=== PATIENT | male | born 1955 | race Caucasian/White ===

== ENCOUNTER 2019-12-18 06:08 | Outpatient (CLI) | payer MEDICARE ==
[2019-12-18 13:05] LABS: Hemoglobin 13.7 g/dL (14.0-18.0); Mean Corpuscular HGB CONC 34.2 g/dL (32.0-36.0); Mean Corpuscular Hemoglobin 36.5 pg (27.0-31.0); Mean Platelet Volume 7.1 fL (7.4-10.4); Platelet Count 216 thou/uL (130-400); Red Blood Cell (RBC) Count 3.75 mill/uL (4.70-6.10); White Blood Cell (WBC) Count 7.7 thou/uL (4.8-10.8)
[2019-12-18 13:36] LABS: Anion Gap 15 mmol/L (10-20); BUN (Urea Nitrogen) 16 mg/dL (8.4-25.7); Calc. Creatinine Clearance 0 mL/min (70-130); Calcium 9.8 mg/dL (7.8-10.44); Carbon Dioxide 25 mmol/L (23-31); Chloride 101 mmol/L (98-107); Estimated GFR-MDRD 77; Glucose 95 mg/dL (80-115); Potassium 4.6 mmol/L (3.5-5.1); Sodium 136 mmol/L (136-145)
--- NOTE | 2019-12-18 17:06 | EKG ---
Test Reason : Blood Pressure : / mmHG Vent. Rate : 064 BPM Atrial Rate : 064 BPM P-R Int : 220 ms QRS Dur : 092 ms QT Int : 420 ms P-R-T Axes : 059 000 106 degrees QTc Int : 433 ms Sinus rhythm with 1st degree A-V block Minimal voltage criteria for LVH, may be normal variant Septal infarct , age undetermined T wave abnormality, consider lateral ischemia Abnormal ECG No previous ECGs available Confirmed by DR. Augustus BAIG ([id number]) on 12/18/2019 5:05:58 PM Referred By: DENIS Confirmed By:DR. Augustus BAIG
== END 2019-12-18 06:09 | disposition home or self-care (01) ==
LOC: LABBT 06:08
PROVIDERS: ATTEND Urology
DX: Z01.818 Encounter for other preprocedural examination (principal); N31.9 Neuromuscular dysfunction of bladder, unspecified
CPT/HCPCS: 80048; 85027; 87086; 93005; 93010

== ENCOUNTER 2019-12-25 08:33 | Day surgery (SDC) | payer MEDICARE ==
[2019-12-18 11:52] VITALS: BMI 35.7
[2019-12-25] MEDS ORDERED: Levofloxacin 500 mg/D5W 100 ml Premix Bag ONE (09:17)
[2019-12-25] MEDS ORDERED: Fentanyl 100 MCG/2 ML VIAL ONE ×2 (10:12→11:25)
[2019-12-25] MEDS ORDERED: Bupivacaine PF 0.5% 30 ML VIAL ONE (10:23)
[2019-12-25] MEDS ORDERED: EPHEDRINE 25 MG/5 ML SYRINGE ONE (11:13)
[2019-12-25] MEDS ORDERED: Ondansetron PF 4 MG/2 ML Vial ONE (11:13)
[2019-12-25] MEDS ORDERED: PROPOFOL 200 MG/20 ML VIAL ONE (11:13)
[2019-12-25] MEDS ORDERED: PHENYLEPHRINE-NS 100 MCG/ML 10 ML SYRINGE ONE (11:13)
[2019-12-25] MEDS ORDERED: Succinylcholine Chloride 20 MG/ML 10 ml SYRINGE FS ONE (11:13)
[2019-12-25] MEDS ORDERED: Esmolol 100 MG/10 ML VIAL ONE (11:13)
--- NOTE | 2019-12-25 12:02 | OP ---
DATE OF PROCEDURE: 12/25/2019 PREOPERATIVE DIAGNOSIS: Urinary retention. POSTOPERATIVE DIAGNOSES: Urinary retention, wound on right base of penis, scrotal abscess. PROCEDURES PERFORMED: Placement of suprapubic tube, irrigation and dressing of right base of penis wound, irrigation and probing of right scrotal abscess. ANESTHESIA: General. COMPLICATIONS: None. BLOOD LOSS: Minimal. DESCRIPTION OF PROCEDURE: After informed consent, the patient was taken to the operating room and transferred to the table under his own power. Anesthesia was established. A time-out was performed showing the correct patient, site, and procedure. He was prepped and draped in a lithotomy position after removing his catheter. I began by examining him and noted that he has a wound about 3 cm on the right base of the penis, which appears fresh. No active bleeding. Corpora were not visualized. No signs of infection. This was irrigated, and no purulence noted. He also has a small abscess cavity on the right side of the scrotum, which appears to have already drained. This was irrigated and probed noting no purulence or signs of infection. I then passed the 17-[place] rigid cystoscope through the urethra noting a very high bladder neck. The bladder was then entered and examined noting no mucosal abnormalities with both 30-degree and 70-degree lenses. He does have severe trabeculation with multiple small diverticula. The suprapubic site was then infiltrated with 20 mL of 0.25% Marcaine. Spinal needle was passed through this into the anterior aspect of the bladder under direct visualization. The scope was then withdrawn, and then a Lowsley catheter was passed, and an incision made through the suprapubic area onto the tip of Lowsley retractor, which was then passed into the suprapubic operative field. An 18-[place] catheter was grasped with the Lowsley and brought down into the bladder. 5 mL was instilled in the balloon. The Lowsley was then withdrawn, and the scope was inserted confirming proper placement of the suprapubic tube visually. The suprapubic incision was closed with chromic suture, and then the suprapubic tube was secured in place with silk suture. I then dressed the wound on the right side of the base of the penis with 4x4 and tape. The patient was then awoken from anesthesia, transferred back to his hospital bed, and taken to PACU in stable condition, where he will discharge home upon recovery. Job ID: [id number]
[2019-12-25] MEDS ORDERED: HYDROcodone/Acetaminophen 5/325 mg Tablet ONE (12:14)
== END 2019-12-25 13:20 | disposition home or self-care (01) ==
LOC: SDC 08:33 → EDBD 11:00 → SDC 13:20
PROVIDERS: ATTEND Urology
PROC: 0T9B30Z Drainage of Bladder with Drainage Device, Percutaneous Approach (ICD-10-PCS; principal; 2019-12-25)
DX: N31.9 Neuromuscular dysfunction of bladder, unspecified (principal); R33.9 Retention of urine, unspecified; N49.2 Inflammatory disorders of scrotum; F17.200 Nicotine dependence, unspecified, uncomplicated; Z79.899 Other long term (current) drug therapy; Z88.0 Allergy status to penicillin
CPT/HCPCS: J1956; J2405; J2704; J3010; S0020

== ENCOUNTER 2020-03-09 20:57 | Emergency (ER) | payer MEDICARE ==
[2020-03-09] MEDS ORDERED: Ciprofloxacin 500 MG TAB ONE (22:37)
== END 2020-03-09 23:05 | disposition home or self-care (01) ==
LOC: ERS 20:57
DX: T83.028A Displacement of other urinary catheter, initial encounter (principal); I25.2 Old myocardial infarction; J44.9 Chronic obstructive pulmonary disease, unspecified; I11.0 Hypertensive heart disease with heart failure; I50.9 Heart failure, unspecified; E78.5 Hyperlipidemia, unspecified; F17.210 Nicotine dependence, cigarettes, uncomplicated
CPT/HCPCS: 51702

== ENCOUNTER 2020-05-23 12:58 | Emergency (ER) | payer MEDICARE ==
[~2020-05-23 12:58] MED LIST: Iopamidol-370 76% 500 ML 1 ML ONE
[2020-05-23 15:09] LABS: Bilirubin Negative (Negative); Blood, Urine 3+ (Negative); Clarity Turbid (Clear); Glucose, Urine (Dipstick) Normal (Negative); Ketone, Urine Negative (Negative); Leukocyte 500 Leu/uL (Negative); Nitrite 2+ (Negative); Protein, Urine (Dipstick) 10 mg/dL (Neg-Trace); RBC/HPF 21-50 HPF (0-3); Specific Gravity, Urine 1.014 (1.002-1.036); Urobilinogen Normal mg/dL (Less than 2); WBC/HPF Greater than 50 HPF (0-3)
[2020-05-23 15:10] LABS: Bacteria/HPF 4+ HPF (None Seen)
[2020-05-23 15:13] LABS: Squamous Epithelial 0-3 HPF (0-3); Yeast-Budding None Seen HPF (None Seen)
[2020-05-23 15:17] LABS: #Basophils 0.1 thou/uL (0.0-0.2); #Eosinphils 0.2 thou/uL (0.0-0.7); #Lymphocytes 2.8 thou/uL (1.20-3.40); #Monocytes 0.7 thou/uL (0.11-0.59); #Neutrophils 5.1 thou/uL (1.40-6.50); %Basophils 0.6 % (0.0-1.0); %Lymphocytes 31.9 % (21.0-51.0); %Monocytes 7.6 % (0.0-10.0); %Neutrophils 57.9 % (42.0-75.0); Hemoglobin 13.8 g/dL (14.0-18.0); Mean Corpuscular HGB CONC 34.6 g/dL (32.0-36.0); Mean Corpuscular Hemoglobin 36.9 pg (27.0-31.0); Mean Platelet Volume 7.1 fL (7.4-10.4); Platelet Count 237 thou/uL (130-400); RBC Distribution Width 11.7 % (11.5-14.5); Red Blood Cell (RBC) Count 3.73 mill/uL (4.70-6.10); White Blood Cell (WBC) Count 8.9 thou/uL (4.8-10.8)
[2020-05-23 15:32] LABS: ALT (SGPT) 28 U/L (8-55); AST (SGOT) 26 U/L (5-34); Albumin 4.2 g/dL (3.4-4.8); Alkaline Phosphatase 61 U/L (40-110); Anion Gap 14 mmol/L (10-20); BUN (Urea Nitrogen) 15 mg/dL (8.4-25.7); Bilirubin, Total 0.6 mg/dL (0.2-1.2); Calc. Creatinine Clearance 0 mL/min (70-130); Calcium 9.8 mg/dL (7.8-10.44); Carbon Dioxide 24 mmol/L (23-31); Chloride 101 mmol/L (98-107); Estimated GFR-MDRD 81; Globulin 3.5 g/dL (2.4-3.5); Glucose 100 mg/dL (80-115); Lipase 34 U/L (8-78); Potassium 4.4 mmol/L (3.5-5.1); Protein, Total 7.7 g/dL (5.8-8.1); Sodium 135 mmol/L (136-145)
[2020-05-23 15:45] LABS: MDiff Complete? YES; Macrocytosis SLIGHT = 6-15 cells (100X) (0-5/hpf); Platelet Morphology Comment Appears Adequate; Polychromasia SLIGHT = 2-3 cells (100X) (0-2/hpf)
[2020-05-23] MEDS ORDERED: Sodium Chloride 0.9% 100 ML ONE (16:08)
[2020-05-23] MEDS ORDERED: cefTRIAXone\\ROCEPHIN 2 GM VIAL ONE (16:08)
[2020-05-23] MEDS ORDERED: Morphine 4 MG/ML VIAL ONE (17:16)
--- NOTE | 2020-05-23 19:29 | CT ---
CT Abdomen Pelvis W Con: 05/23/2020 3:52 PM CLINICAL INFORMATION: Fever and lower abdominal pain; cloudiness in urine COMPARISON: None. TECHNIQUE: Multiple contiguous axial images were obtained and a CT of the abdomen and pelvis with IV contrast. C oronal and sagittal reformats were performed. FINDINGS: Lower Chest: within normal limits. Abdomen: Liver: Diffuse fatty infiltration without focal lesions. Bile Ducts: The common bile duct measures 12 mm which is likely a reservoir effect from prior cholecy stectomy. Gallbladder: Removed Pancreas: within normal limits. Spleen: Calcifications from prior granulomatous disease. Adrenals: 1.9 cm left adrenal mass. Kidneys: 3 mm nonobstructing calcification in the lower pole the left kidney. 1.2 cm left renal cyst. Pelvis: Reproductive Organs: No pelvic masses. Ureters: within normal limits. Bladder: Decompressed by a Montes catheter. Apparent thickening of the wall may be secondary to its de compressed state. Peritoneum: No ascites or free air, no fluid collection. Bowel: Normal caliber. There is thickening of the wall of the colon in the rectal region. Mesentery and Retroperitoneum: No enlarged mesenteric or retroperitoneal lymph nodes. Vessels: Atherosclerotic calcifications. Abdominal Wall: within normal limits. Bones: Degenerative and postsurgical changes in the spine. IMPRESSION: 1. No evidence of acute intraabdominal or pelvic abnormality. 2. Left adrenal mass 3. Nonobstructing left renal calcification 4. Left renal cyst 5. Possible thickening of the wall the rectum. A rectal mass must be excluded. Correlate with physica l examination as this is very low in the rectum. 6. Fatty liver
== END 2020-05-23 20:19 | disposition home or self-care (01) ==
LOC: ERS 12:58
DX: N39.0 Urinary tract infection, site not specified (principal); N48.22 Cellulitis of corpus cavernosum and penis; I11.0 Hypertensive heart disease with heart failure; I50.9 Heart failure, unspecified; I25.2 Old myocardial infarction; J44.9 Chronic obstructive pulmonary disease, unspecified; E78.5 Hyperlipidemia, unspecified; F17.210 Nicotine dependence, cigarettes, uncomplicated; Z79.82 Long term (current) use of aspirin; Z79.899 Other long term (current) drug therapy
CPT/HCPCS: 36415; 51702; 74177; 80053; 81003; 81015; 83605; 83690; 85025; 87040; 87077; 87086; 87186; 96361; 96365; 96372; J0696; J2270; J3490; Q9967

== ENCOUNTER 2021-02-09 22:48 | Inpatient (IN) | payer MEDICARE ==
[2021-02-09 23:21] LABS: #Eosinphils 0.5 thou/uL (0.0-0.7); #Lymphocytes 2.3 thou/uL (1.20-3.40); #Monocytes 0.7 thou/uL (0.11-0.59); #Neutrophils 6.5 thou/uL (1.40-6.50); %Basophils 0.2 % (0.0-1.0); %Eosinophils 4.8 % (0.0-10.0); %Lymphocytes 23.1 % (21.0-51.0); %Monocytes 6.8 % (0.0-10.0); %Neutrophils 65.1 % (42.0-75.0); Hemoglobin 13.3 g/dL (14.0-18.0); Mean Corpuscular HGB CONC 33.7 g/dL (32.0-36.0); Mean Corpuscular Hemoglobin 36.4 pg (27.0-31.0); Mean Platelet Volume 6.6 fL (7.4-10.4); Platelet Count 265 thou/uL (130-400); RBC Distribution Width 12.3 % (11.5-14.5); Red Blood Cell (RBC) Count 3.66 mill/uL (4.70-6.10)
[2021-02-09 23:45] LABS: ALT (SGPT) 27 U/L (8-55); AST (SGOT) 36 U/L (5-34); Albumin 3.7 g/dL (3.4-4.8); Alkaline Phosphatase 75 U/L (40-110); Anion Gap 19 mmol/L (10-20); BUN (Urea Nitrogen) 11 mg/dL (8.4-25.7); Bilirubin, Total 0.2 mg/dL (0.2-1.2); Calc. Creatinine Clearance 0 mL/min (70-130); Calcium 9.4 mg/dL (7.8-10.44); Carbon Dioxide 24 mmol/L (23-31); Chloride 97 mmol/L (98-107); Glucose 210 mg/dL (80-115); Lipase 87 U/L (8-78); Protein, Total 7.7 g/dL (5.8-8.1); Sodium 136 mmol/L (136-145)
[2021-02-10 00:17] LABS: CKMB 2.4 ng/mL (0-6.6)
[2021-02-10] MEDS ORDERED: Cefepime 2 GM VIAL ONE (03:27)
[2021-02-10 03:58] LABS: Troponin I 0.898 ng/mL (< 0.028)
[2021-02-10] MEDS ORDERED: Nitroglycerin 0.4 MG TAB (25 Tab Bottle) SL PRN ×2 (04:32→12:45)
[2021-02-10] MEDS ORDERED: Acetaminophen 325 MG TAB PO PRN (04:32)
[2021-02-10] MEDS ORDERED: Dextrose 5% in Water 1,000 ML IV PRN (04:36)
[2021-02-10] MEDS ORDERED: Dextrose 50% Abboject 50 ML SYRINGE SLOW IVP PRN (04:36)
[2021-02-10] MEDS ORDERED: HumaLOG 300 UNITS/3 ML VIAL SC PRN (04:36)
[2021-02-10] MEDS ORDERED: Heparin 25,000 units/D5W 500 ML IVPB SCH (04:45)
[2021-02-10] MEDS ORDERED: Heparin 10,000 UNITS/ 10 ML VIAL SLOW IVP SCH (04:45)
[2021-02-10 05:29] LABS: Hemoglobin 12.3 g/dL (14.0-18.0); Platelet Count 246 thou/uL (130-400)
[2021-02-10 05:48] LABS: Hemoglobin A1c 5.7 % (4.0-6.0)
[2021-02-10 05:50] LABS: Cardiac Risk 3.1 (Less than 4.5)
[2021-02-10] MEDS ORDERED: Heparin 10,000 UNITS/ 10 ML VIAL ONE ×2 (05:57→12:19)
[2021-02-10] MEDS ORDERED: Heparin 25,000 units/D5W 500 ML ONE (05:57)
[2021-02-10 06:59] LABS: Troponin I 2.128 ng/mL (< 0.028)
[2021-02-10] MEDS ORDERED: Iopamidol-370 76% 500 ML 1 ML ONE (09:07)
[2021-02-10] MEDS ORDERED: Thiamine 100 MG TAB ONE (09:17)
[2021-02-10] MEDS ORDERED: Folic Acid 1 MG TAB ONE (09:17)
[2021-02-10] MEDS ORDERED: Aspirin Chewable 81 MG TAB ONE (09:17)
[2021-02-10] MEDS ORDERED: hydrALAZINE 20 MG/ML VIAL ONE ×2 (09:22→10:58)
[2021-02-10] MEDS: Aspirin Chewable 81 MG TAB PO SCH (09:25)
[2021-02-10] MEDS: Folic Acid 1 MG TAB PO SCH (09:25)
[2021-02-10] MEDS: Thiamine 100 MG TAB PO SCH (09:25)
[2021-02-10 09:58] LABS: Troponin I 2.416 ng/mL (< 0.028)
[2021-02-10 10:04] LABS: SARS-CoV-2 PCR by NAA Not Detected (NotDetected)
[2021-02-10] MEDS ORDERED: Lidocaine 1% (PF) 30 ML VIAL ONE (11:16)
[2021-02-10] MEDS ORDERED: Nitroglycerin 100MG/250ML BOT 250 ML ONE (11:18)
[2021-02-10] MEDS ORDERED: Verapamil 5 MG/2 ML VIAL ONE (11:18)
[2021-02-10] MEDS ORDERED: Adenosine 6 MG/2 ML VIAL ONE (11:18)
[2021-02-10] MEDS ORDERED: Midazolam HCl 2 mg/2 ml Vial ONE (12:19)
[2021-02-10] MEDS ORDERED: Fentanyl 100 MCG/2 ML VIAL ONE (12:19)
[2021-02-10] MEDS ORDERED: Iopamidol 370 76% 100 ML VIAL ONE (12:45)
[2021-02-10] MEDS ORDERED: Acetaminophen/Codeine 30-300mg Tablet PO PRN (12:45)
[2021-02-10] MEDS ORDERED: Sodium Chloride 0.9% 1,000 ML IV SCH (12:45)
[2021-02-10] MEDS: hydrALAZINE 20 MG/ML VIAL SLOW IVP PRN ×2 (13:28→16:24)
[2021-02-10 13:47] VITALS: BMI 39.2
[2021-02-10] MEDS ORDERED: cloNIDine 0.1 MG TAB PO SCH (15:15)
[2021-02-10] MEDS: Cefepime 1 GM in Sodium Chloride 0.9% 100 ML IVPB SCH (15:22)
[2021-02-10] MEDS: Acetaminophen/Codeine 30-300mg Tablet PO PRN (16:20)
[2021-02-10] MEDS: Ondansetron PF 4 MG/2 ML Vial IVP PRN (17:12)
[2021-02-10 17:42] LABS: Bilirubin Negative (Negative); Blood, Urine 2+ (Negative); Clarity Extra Turbid (Clear); Glucose, Urine (Dipstick) Normal (Negative); Ketone, Urine Negative (Negative); Leukocyte 250 Leu/uL (Negative); Nitrite 1+ (Negative); Protein, Urine (Dipstick) 50 mg/dL (Neg-Trace); RBC/HPF 21-50 HPF (0-3); Specific Gravity, Urine 1.033 (1.002-1.036); Urobilinogen Normal mg/dL (Less than 2); pH, Urine 7.5 (5.0-9.0)
[2021-02-10 17:43] LABS: Bacteria/HPF 1+ HPF (None Seen); Squamous Epithelial 0-3 HPF (0-3)
[2021-02-10] MEDS: Atorvastatin Calcium 40 MG TAB PO SCH (20:39)
[2021-02-11] MEDS: Cefepime 1 GM in Sodium Chloride 0.9% 100 ML IVPB SCH ×2 (03:40→14:54)
[2021-02-11 05:54] LABS: #Eosinphils 0.4 thou/uL (0.0-0.7); #Lymphocytes 2.1 thou/uL (1.20-3.40); #Monocytes 0.6 thou/uL (0.11-0.59); #Neutrophils 4.3 thou/uL (1.40-6.50); %Basophils 0.6 % (0.0-1.0); %Eosinophils 5.7 % (0.0-10.0); %Lymphocytes 27.9 % (21.0-51.0); %Monocytes 7.8 % (0.0-10.0); Hemoglobin 12.1 g/dL (14.0-18.0); Mean Corpuscular HGB CONC 33.9 g/dL (32.0-36.0); Mean Platelet Volume 7.1 fL (7.4-10.4); Platelet Count 221 thou/uL (130-400); RBC Distribution Width 12.5 % (11.5-14.5); Red Blood Cell (RBC) Count 3.28 mill/uL (4.70-6.10); White Blood Cell (WBC) Count 7.4 thou/uL (4.8-10.8)
[2021-02-11 05:57] LABS: Anion Gap 15 mmol/L (10-20); BUN (Urea Nitrogen) 10 mg/dL (8.4-25.7); Calc. Creatinine Clearance 170 mL/min (70-130); Calcium 8.9 mg/dL (7.8-10.44); Carbon Dioxide 22 mmol/L (23-31); Chloride 103 mmol/L (98-107); Glucose 114 mg/dL (80-115); Potassium 4.2 mmol/L (3.5-5.1); Sodium 136 mmol/L (136-145)
[2021-02-11] MEDS: Ondansetron PF 4 MG/2 ML Vial IVP PRN ×2 (07:48→15:21)
[2021-02-11] MEDS: Thiamine 100 MG TAB PO SCH (09:24)
[2021-02-11] MEDS: Folic Acid 1 MG TAB PO SCH (09:24)
[2021-02-11] MEDS: Acetaminophen/Codeine 30-300mg Tablet PO PRN (09:24)
[2021-02-11] MEDS: Aspirin Chewable 81 MG TAB PO SCH (09:24)
[2021-02-11] MEDS: HYDROcodone/Acetaminophen 10/325 mg Tablet PO PRN ×2 (13:29→20:28)
[2021-02-11] MEDS: Gabapentin 400 MG CAP PO PRN (15:21)
[2021-02-11] MEDS ORDERED: hydrALAZINE 20 MG/ML VIAL SLOW IVP PRN (16:49)
[2021-02-11] MEDS: Atorvastatin Calcium 40 MG TAB PO SCH (20:29)
[2021-02-11] MEDS: Carvedilol 6.25 MG TAB PO SCH (20:30)
[2021-02-11] MEDS: Losartan 25 MG TAB PO SCH (20:31)
[2021-02-11] MEDS ORDERED: Famotidine 20 MG TAB PO SCH (21:00)
[2021-02-11] MEDS ORDERED: Venlafaxine HCl XR 150 MG CAP PO SCH (21:00)
[2021-02-12] MEDS: Cefepime 1 GM in Sodium Chloride 0.9% 100 ML IVPB SCH ×2 (02:33→15:21)
[2021-02-12] MEDS: Ondansetron PF 4 MG/2 ML Vial IVP PRN ×2 (05:45→09:49)
[2021-02-12] MEDS: HYDROcodone/Acetaminophen 10/325 mg Tablet PO PRN ×2 (06:00→12:01)
[2021-02-12 06:09] LABS: #Basophils 0.1 thou/uL (0.0-0.2); #Eosinphils 0.4 thou/uL (0.0-0.7); #Lymphocytes 2.1 thou/uL (1.20-3.40); #Monocytes 0.7 thou/uL (0.11-0.59); #Neutrophils 3.8 thou/uL (1.40-6.50); %Basophils 0.9 % (0.0-1.0); %Eosinophils 5.8 % (0.0-10.0); %Lymphocytes 29.7 % (21.0-51.0); %Monocytes 9.5 % (0.0-10.0); %Neutrophils 54.1 % (42.0-75.0); Hemoglobin 12.3 g/dL (14.0-18.0); Mean Corpuscular HGB CONC 34.2 g/dL (32.0-36.0); Mean Platelet Volume 6.7 fL (7.4-10.4); Platelet Count 230 thou/uL (130-400); RBC Distribution Width 12.3 % (11.5-14.5); Red Blood Cell (RBC) Count 3.33 mill/uL (4.70-6.10)
[2021-02-12 06:32] LABS: Anion Gap 15 mmol/L (10-20); BUN (Urea Nitrogen) 10 mg/dL (8.4-25.7); Calc. Creatinine Clearance 164 mL/min (70-130); Calcium 9.4 mg/dL (7.8-10.44); Carbon Dioxide 21 mmol/L (23-31); Chloride 104 mmol/L (98-107); Glucose 105 mg/dL (80-115); Sodium 136 mmol/L (136-145)
[2021-02-12] MEDS ORDERED: Furosemide 40 MG TAB PO SCH (09:00)
[2021-02-12] MEDS ORDERED: Clopidogrel Bisulfate 75 MG TAB PO SCH (09:00)
[2021-02-12] MEDS: Aspirin Chewable 81 MG TAB PO SCH (10:14)
[2021-02-12] MEDS: Carvedilol 6.25 MG TAB PO SCH (10:15)
[2021-02-12] MEDS: Thiamine 100 MG TAB PO SCH (10:15)
[2021-02-12] MEDS: Folic Acid 1 MG TAB PO SCH (10:15)
[2021-02-12] MEDS: Losartan 25 MG TAB PO SCH (10:16)
[2021-02-12] MEDS: Gabapentin 400 MG CAP PO PRN (10:22)
[2021-02-12] MEDS ORDERED: hydrALAZINE 25 MG TAB PO SCH (10:45)
[2021-02-12 15:19] VITALS: BP 148/70; TEMP 98
== END 2021-02-12 17:12 | disposition home or self-care (01) | DRG 281 ==
LOC: ERS 22:48 → ERHOLD 02-10 03:03 → OBSVTOIN 02-10 09:33 → 2NO 02-10 12:15
PROVIDERS: ADMIT Internal Medicine; ATTEND Internal Medicine
PROC: 4A023N7 Measurement of Cardiac Sampling and Pressure, Left Heart, Percutaneous Approach (ICD-10-PCS; principal; 2021-02-10)
PROC: B2111ZZ Fluoroscopy of Multiple Coronary Arteries using Low Osmolar Contrast (ICD-10-PCS; 2021-02-10)
DX: T82.855A Stenosis of coronary artery stent, initial encounter (principal); I21.A9 Other myocardial infarction type; I97.190 Other postprocedural cardiac functional disturbances following cardiac surgery; I25.110 Atherosclerotic heart disease of native coronary artery with unstable angina pectoris; I11.0 Hypertensive heart disease with heart failure; F10.10 Alcohol abuse, uncomplicated; F17.210 Nicotine dependence, cigarettes, uncomplicated; I50.9 Heart failure, unspecified; E78.2 Mixed hyperlipidemia; R32 Unspecified urinary incontinence; J44.9 Chronic obstructive pulmonary disease, unspecified; G89.29 Other chronic pain; M54.9 Dorsalgia, unspecified; E66.01 Morbid (severe) obesity due to excess calories; Z20.822 Contact with and (suspected) exposure to COVID-19; N31.9 Neuromuscular dysfunction of bladder, unspecified; Y83.1 Surgical operation with implant of artificial internal device as the cause of abnormal reaction of the patient, or of later complication, without mention of misadventure at the time of the procedure; Z88.0 Allergy status to penicillin; Z79.82 Long term (current) use of aspirin; Z95.5 Presence of coronary angioplasty implant and graft; Z68.39 Body mass index [BMI] 39.0-39.9, adult
CPT/HCPCS: 36415; 36416; 71045; 71275; 80048; 80053; 80061; 81003; 81015; 82553; 83036; 83690; 83880; 84484; 85014; 85018; 85025; 85049; 85347; 85730; 87077; 87086; 87186; 87635; 93005; 93306; 93458; 94760; 96365; 96375; 96376; 99152; G0378; J0153; J0360; J0692; J1644; J2001; J2250; J2405; J3010; J3490; Q9967; U0003; U0005

== ENCOUNTER 2021-05-22 14:50 | Inpatient (IN) | payer MEDICARE ==
[2021-05-22] MEDS ORDERED: Heparin 1,000 UNITS/ML VIAL ONE (16:05)
[2021-05-22] MEDS ORDERED: Artificial Tear Sol 15 ML BOT EA EYE PRN (16:52)
[2021-05-22] MEDS ORDERED: Bisacodyl 10 MG SUPP PR PRN (16:52)
[2021-05-22] MEDS ORDERED: Acetaminophen 325 MG TAB PO PRN (16:52)
[2021-05-22] MEDS ORDERED: hydrALAZINE 20 MG/ML VIAL SLOW IVP PRN (16:52)
[2021-05-22] MEDS ORDERED: Benzonatate 100 MG CAP PO PRN (16:52)
[2021-05-22] MEDS ORDERED: Ondansetron PF 4 MG/2 ML Vial IVP PRN (16:52)
[2021-05-22] MEDS ORDERED: Senokot S 8.6-50 MG TAB PO PRN (16:52)
[2021-05-22] MEDS ORDERED: Sodium Chloride 0.65% Nasal 44 ML BOT EA NARE PRN (16:52)
[2021-05-22] MEDS ORDERED: Calcium Carbonate 500 MG ChewTAB PO PRN (16:52)
[2021-05-22] MEDS ORDERED: Loratadine 10 MG TAB PO PRN (16:52)
[2021-05-22] MEDS ORDERED: Guaifenesin DM 100-10/5 ML UDCUP PO PRN (16:52)
[2021-05-22] MEDS ORDERED: Loperamide HCl 2 MG CAP PO PRN (16:52)
[2021-05-22] MEDS ORDERED: Cepastat Lozenges 1 LOZ PO PRN (16:52)
[2021-05-22] MEDS ORDERED: Hydrocerin (Eucerin) Cream 120 gm Jar TOP PRN (16:52)
[2021-05-22] MEDS ORDERED: Ondansetron ODT 4 MG TAB PO PRN (16:52)
[2021-05-22 17:24] VITALS: BMI 39.7
[2021-05-22] MEDS ORDERED: Cefepime 1 GM in Sodium Chloride 0.9% 100 ML IVPB SCH (21:00)
[2021-05-22] MEDS: MEROPENEM 1 GM/50 ML 1 GM in Premix Bag 1 BAG IVPB SCH (21:12)
[2021-05-22] MEDS: Famotidine 20 MG TAB PO SCH (21:13)
[2021-05-22] MEDS: HYDROcodone/Acetaminophen 5/325 mg Tablet PO PRN (21:27)
[2021-05-22] MEDS ORDERED: Meropenem 1 GM in Sodium Chloride 0.9% 100 ML IVPB SCH (22:00)
[2021-05-22 22:36] LABS: SARS-CoV-2 PCR by NAA Not Detected (NotDetected)
[2021-05-23] MEDS: VANCOMYCIN 1.75 GM/350 ML BAG 1.75 GM in Premix Bag 1 BAG IVPB SCH ×2 (01:39→13:26)
[2021-05-23] MEDS: HYDROcodone/Acetaminophen 5/325 mg Tablet PO PRN ×5 (01:50→22:21)
[2021-05-23] MEDS ORDERED: Diazepam 5 MG TAB PO PRN (04:10)
[2021-05-23] MEDS ORDERED: Diazepam 5 MG TAB PO SCH (04:15)
[2021-05-23] MEDS ORDERED: Thiamine HCl 200 MG/2 ML VIAL IM SCH (04:15)
[2021-05-23] MEDS: MEROPENEM 1 GM/50 ML 1 GM in Premix Bag 1 BAG IVPB SCH ×3 (04:58→20:18)
[2021-05-23 05:19] LABS: Anion Gap 14 mmol/L (10-20); BUN (Urea Nitrogen) 19 mg/dL (8.4-25.7); Calc. Creatinine Clearance 102 mL/min (70-130); Carbon Dioxide 20 mmol/L (23-31); Chloride 102 mmol/L (98-107); Potassium 4.2 mmol/L (3.5-5.1); Sodium 132 mmol/L (136-145)
[2021-05-23 05:20] LABS: ALT (SGPT) 15 U/L (8-55); AST (SGOT) 27 U/L (5-34); Albumin 3.2 g/dL (3.4-4.8); Alkaline Phosphatase 47 U/L (40-110); Bilirubin, Total 0.5 mg/dL (0.2-1.2); Calcium 8.6 mg/dL (7.8-10.44); Globulin 3.4 g/dL (2.4-3.5); Glucose 118 mg/dL (80-115); Protein, Total 6.6 g/dL (5.8-8.1)
[2021-05-23 05:53] LABS: #Eosinphils 0.1 thou/uL (0.0-0.7); #Lymphocytes 1.3 thou/uL (1.20-3.40); #Monocytes 1.4 thou/uL (0.11-0.59); %Basophils 0.1 % (0.0-1.0); %Eosinophils 0.7 % (0.0-10.0); %Lymphocytes 7.4 % (21.0-51.0); %Monocytes 8.3 % (0.0-10.0); %Neutrophils 83.5 % (42.0-75.0); Hemoglobin 11.2 g/dL (14.0-18.0); Mean Corpuscular HGB CONC 33.6 g/dL (32.0-36.0); Mean Corpuscular Hemoglobin 36.7 pg (27.0-31.0); Mean Platelet Volume 7.3 fL (7.4-10.4); Platelet Count 163 thou/uL (130-400); RBC Distribution Width 12.3 % (11.5-14.5); Red Blood Cell (RBC) Count 3.04 mill/uL (4.70-6.10); White Blood Cell (WBC) Count 16.8 thou/uL (4.8-10.8)
[2021-05-23] MEDS: Saccharomyces boulardii 250 MG CAP PO SCH (08:27)
[2021-05-23] MEDS: Multivitamin W/ Minerals 1 TAB PO SCH (08:27)
[2021-05-23] MEDS: Famotidine 20 MG TAB PO SCH ×2 (08:27→20:20)
[2021-05-23] MEDS ORDERED: Folic Acid 1 MG TAB PO SCH (09:00)
[2021-05-23] MEDS ORDERED: Enoxaparin Sodium 40 MG/0.4 ML SYRINGE SC SCH (09:00)
[2021-05-23] MEDS: hydrALAZINE 10 MG TAB PO SCH ×2 (14:52→20:20)
[2021-05-23] MEDS: Nicotine 21 MG PATCH TOP SCH (17:32)
[2021-05-23] MEDS: Atorvastatin Calcium 40 MG TAB PO SCH (20:19)
[2021-05-23] MEDS: tiZANidine HCl 4 MG TAB PO SCH (20:20)
[2021-05-23] MEDS: Gabapentin 300 MG CAP PO SCH (20:20)
[2021-05-23] MEDS: Carvedilol 3.125 MG TAB PO SCH (20:20)
[2021-05-23] MEDS: Zolpidem Tartrate 5 MG TAB PO PRN (20:38)
[2021-05-24] MEDS: VANCOMYCIN 1.75 GM/350 ML BAG 1.75 GM in Premix Bag 1 BAG IVPB SCH (02:31)
[2021-05-24] MEDS ORDERED: Diazepam 5 MG TAB PO PRN (04:00)
[2021-05-24] MEDS: MEROPENEM 1 GM/50 ML 1 GM in Premix Bag 1 BAG IVPB SCH ×3 (04:22→20:13)
[2021-05-24 05:10] LABS: #Eosinphils 0.3 thou/uL (0.0-0.7); #Lymphocytes 1.8 thou/uL (1.20-3.40); #Monocytes 1.1 thou/uL (0.11-0.59); #Neutrophils 9.6 thou/uL (1.40-6.50); %Basophils 0.3 % (0.0-1.0); %Eosinophils 2.2 % (0.0-10.0); %Lymphocytes 14.1 % (21.0-51.0); %Monocytes 8.5 % (0.0-10.0); %Neutrophils 74.9 % (42.0-75.0); Mean Corpuscular Hemoglobin 37.3 pg (27.0-31.0); Mean Platelet Volume 7.4 fL (7.4-10.4); Platelet Count 147 thou/uL (130-400); RBC Distribution Width 12.1 % (11.5-14.5); Red Blood Cell (RBC) Count 2.68 mill/uL (4.70-6.10); White Blood Cell (WBC) Count 12.8 thou/uL (4.8-10.8)
[2021-05-24 05:23] LABS: Phosphorus 3.3 mg/dL (2.3-4.7)
[2021-05-24 05:26] LABS: Anion Gap 10 mmol/L (10-20); BUN (Urea Nitrogen) 19 mg/dL (8.4-25.7); Calc. Creatinine Clearance 101 mL/min (70-130); Calcium 8.5 mg/dL (7.8-10.44); Carbon Dioxide 23 mmol/L (23-31); Chloride 101 mmol/L (98-107); Glucose 118 mg/dL (80-115); Magnesium 2.4 mg/dL (1.6-2.6); Potassium 3.8 mmol/L (3.5-5.1); Sodium 130 mmol/L (136-145)
[2021-05-24] MEDS ORDERED: Aspirin 81 mg Enteric Coated Tablet PO SCH (09:00)
[2021-05-24] MEDS: HYDROcodone/Acetaminophen 5/325 mg Tablet PO PRN (09:03)
[2021-05-24] MEDS: hydrALAZINE 10 MG TAB PO SCH ×3 (09:04→20:12)
[2021-05-24] MEDS: Carvedilol 3.125 MG TAB PO SCH ×2 (09:04→20:12)
[2021-05-24] MEDS: VANCOMYCIN 1.25 GM/250 ML BAG 1.25 GM in Premix Bag 1 BAG IVPB SCH ×2 (09:04→20:12)
[2021-05-24] MEDS: Thiamine 100 MG TAB PO SCH (09:04)
[2021-05-24] MEDS: Folic Acid 1 MG TAB PO SCH (09:04)
[2021-05-24] MEDS: Losartan 25 MG TAB PO SCH (09:04)
[2021-05-24] MEDS: Multivitamin W/ Minerals 1 TAB PO SCH (09:04)
[2021-05-24] MEDS: Saccharomyces boulardii 250 MG CAP PO SCH (09:04)
[2021-05-24] MEDS: Furosemide 40 MG TAB PO SCH (09:05)
[2021-05-24] MEDS: Magnesium Oxide 400 MG TAB PO SCH (09:05)
[2021-05-24] MEDS: Famotidine 20 MG TAB PO SCH ×2 (09:05→20:12)
[2021-05-24] MEDS: Gabapentin 300 MG CAP PO SCH ×2 (09:05→20:11)
[2021-05-24] MEDS: HYDROcodone/Acetaminophen 10/325 mg Tablet PO PRN ×2 (13:26→19:11)
[2021-05-24] MEDS: Nicotine 21 MG PATCH TOP SCH (16:57)
[2021-05-24] MEDS: Zolpidem Tartrate 5 MG TAB PO PRN (20:12)
[2021-05-24] MEDS: tiZANidine HCl 4 MG TAB PO SCH (20:12)
[2021-05-24] MEDS: Atorvastatin Calcium 40 MG TAB PO SCH (20:12)
[2021-05-24] MEDS: Polyethylene Glycol 3350 17 GM Packet PO SCH (20:13)
[2021-05-25] MEDS: HYDROcodone/Acetaminophen 10/325 mg Tablet PO PRN ×4 (01:32→22:59)
[2021-05-25] MEDS: MEROPENEM 1 GM/50 ML 1 GM in Premix Bag 1 BAG IVPB SCH ×3 (04:48→20:25)
[2021-05-25 04:59] LABS: #Eosinphils 0.3 thou/uL (0.0-0.7); #Lymphocytes 2.1 thou/uL (1.20-3.40); #Monocytes 1.2 thou/uL (0.11-0.59); #Neutrophils 6.3 thou/uL (1.40-6.50); %Basophils 0.1 % (0.0-1.0); %Eosinophils 3.4 % (0.0-10.0); %Lymphocytes 21.3 % (21.0-51.0); %Monocytes 11.8 % (0.0-10.0); %Neutrophils 63.3 % (42.0-75.0); Hemoglobin 10.4 g/dL (14.0-18.0); Mean Corpuscular HGB CONC 34.2 g/dL (32.0-36.0); Mean Corpuscular Hemoglobin 37.4 pg (27.0-31.0); Mean Platelet Volume 7.3 fL (7.4-10.4); Platelet Count 166 thou/uL (130-400); RBC Distribution Width 12.1 % (11.5-14.5); Red Blood Cell (RBC) Count 2.77 mill/uL (4.70-6.10); White Blood Cell (WBC) Count 9.9 thou/uL (4.8-10.8)
[2021-05-25 05:13] LABS: ALT (SGPT) 17 U/L (8-55); AST (SGOT) 24 U/L (5-34); Albumin 3.1 g/dL (3.4-4.8); Alkaline Phosphatase 61 U/L (40-110); Anion Gap 14 mmol/L (10-20); BUN (Urea Nitrogen) 19 mg/dL (8.4-25.7); Bilirubin, Total 0.3 mg/dL (0.2-1.2); Calc. Creatinine Clearance 122 mL/min (70-130); Calcium 9.1 mg/dL (7.8-10.44); Carbon Dioxide 21 mmol/L (23-31); Chloride 103 mmol/L (98-107); Globulin 3.4 g/dL (2.4-3.5); Glucose 114 mg/dL (80-115); Potassium 4.3 mmol/L (3.5-5.1); Protein, Total 6.5 g/dL (5.8-8.1); Sodium 134 mmol/L (136-145)
[2021-05-25] MEDS ORDERED: Fleet Enema 133 ML BOT PR SCH (07:45)
[2021-05-25] MEDS: Gabapentin 300 MG CAP PO SCH ×2 (08:25→20:22)
[2021-05-25] MEDS: Losartan 25 MG TAB PO SCH (08:25)
[2021-05-25] MEDS: Furosemide 40 MG TAB PO SCH (08:26)
[2021-05-25] MEDS: hydrALAZINE 10 MG TAB PO SCH ×3 (08:26→21:45)
[2021-05-25] MEDS: Carvedilol 3.125 MG TAB PO SCH ×2 (08:26→20:22)
[2021-05-25] MEDS: Thiamine 100 MG TAB PO SCH (08:27)
[2021-05-25] MEDS: Multivitamin W/ Minerals 1 TAB PO SCH (08:27)
[2021-05-25] MEDS: Folic Acid 1 MG TAB PO SCH (08:27)
[2021-05-25] MEDS: Magnesium Oxide 400 MG TAB PO SCH (08:27)
[2021-05-25] MEDS: Famotidine 20 MG TAB PO SCH ×2 (08:27→20:23)
[2021-05-25] MEDS: Saccharomyces boulardii 250 MG CAP PO SCH (08:27)
[2021-05-25] MEDS: Polyethylene Glycol 3350 17 GM Packet PO SCH ×2 (08:28→20:25)
[2021-05-25] MEDS: VANCOMYCIN 1.25 GM/250 ML BAG 1.25 GM in Premix Bag 1 BAG IVPB SCH ×2 (10:05→22:45)
[2021-05-25] MEDS: Nicotine 21 MG PATCH TOP SCH (16:34)
[2021-05-25] MEDS: tiZANidine HCl 4 MG TAB PO SCH (20:23)
[2021-05-25] MEDS: Atorvastatin Calcium 40 MG TAB PO SCH (20:23)
[2021-05-25] MEDS: Zolpidem Tartrate 5 MG TAB PO PRN (21:45)
[2021-05-25 22:22] LABS: Vancomycin, Trough 23.5 ug/mL
[2021-05-25] MEDS ORDERED: VANCOMYCIN 1.25 GM/250 ML BAG 1.25 GM in Premix Bag 1 BAG IVPB SCH (23:00)
[2021-05-26] MEDS: MEROPENEM 1 GM/50 ML 1 GM in Premix Bag 1 BAG IVPB SCH ×3 (05:01→20:03)
[2021-05-26] MEDS: HYDROcodone/Acetaminophen 10/325 mg Tablet PO PRN ×4 (05:04→20:03)
[2021-05-26] MEDS: Saccharomyces boulardii 250 MG CAP PO SCH (08:09)
[2021-05-26] MEDS: Gabapentin 300 MG CAP PO SCH ×2 (08:09→20:02)
[2021-05-26] MEDS: Losartan 25 MG TAB PO SCH (08:09)
[2021-05-26] MEDS: Multivitamin W/ Minerals 1 TAB PO SCH (08:09)
[2021-05-26] MEDS: Famotidine 20 MG TAB PO SCH ×2 (08:09→20:01)
[2021-05-26] MEDS: Thiamine 100 MG TAB PO SCH (08:10)
[2021-05-26] MEDS: Furosemide 40 MG TAB PO SCH (08:10)
[2021-05-26] MEDS: Carvedilol 3.125 MG TAB PO SCH ×2 (08:10→20:03)
[2021-05-26] MEDS: hydrALAZINE 10 MG TAB PO SCH ×3 (08:10→20:02)
[2021-05-26] MEDS: Magnesium Oxide 400 MG TAB PO SCH (08:10)
[2021-05-26] MEDS: Folic Acid 1 MG TAB PO SCH (08:10)
[2021-05-26] MEDS: Polyethylene Glycol 3350 17 GM Packet PO SCH ×2 (08:11→20:04)
[2021-05-26] MEDS: Nicotine 21 MG PATCH TOP SCH (16:31)
[2021-05-26] MEDS: tiZANidine HCl 4 MG TAB PO SCH (20:01)
[2021-05-26] MEDS: Atorvastatin Calcium 40 MG TAB PO SCH (20:02)
[2021-05-26] MEDS: Zolpidem Tartrate 5 MG TAB PO PRN (21:06)
[2021-05-27] MEDS: MEROPENEM 1 GM/50 ML 1 GM in Premix Bag 1 BAG IVPB SCH ×3 (05:25→20:13)
[2021-05-27] MEDS: Polyethylene Glycol 3350 17 GM Packet PO SCH ×2 (08:16→20:14)
[2021-05-27] MEDS: Carvedilol 3.125 MG TAB PO SCH ×2 (08:17→20:09)
[2021-05-27] MEDS: Furosemide 40 MG TAB PO SCH (08:18)
[2021-05-27] MEDS: Multivitamin W/ Minerals 1 TAB PO SCH (08:18)
[2021-05-27] MEDS: Magnesium Oxide 400 MG TAB PO SCH (08:18)
[2021-05-27] MEDS: Losartan 25 MG TAB PO SCH (08:18)
[2021-05-27] MEDS: Famotidine 20 MG TAB PO SCH ×2 (08:18→20:08)
[2021-05-27] MEDS: Saccharomyces boulardii 250 MG CAP PO SCH (08:18)
[2021-05-27] MEDS: Folic Acid 1 MG TAB PO SCH (08:18)
[2021-05-27] MEDS: Thiamine 100 MG TAB PO SCH (08:19)
[2021-05-27] MEDS: Gabapentin 300 MG CAP PO SCH ×2 (08:19→20:09)
[2021-05-27] MEDS: hydrALAZINE 10 MG TAB PO SCH ×3 (08:19→20:09)
[2021-05-27] MEDS: HYDROcodone/Acetaminophen 10/325 mg Tablet PO PRN ×4 (08:20→21:15)
[2021-05-27] MEDS: Nicotine 21 MG PATCH TOP SCH (16:01)
[2021-05-27] MEDS: Atorvastatin Calcium 40 MG TAB PO SCH (20:08)
[2021-05-27] MEDS: tiZANidine HCl 4 MG TAB PO SCH (20:09)
[2021-05-27] MEDS: Zolpidem Tartrate 5 MG TAB PO PRN (21:14)
[2021-05-28 04:29] VITALS: TEMP 98.2
[2021-05-28] MEDS: MEROPENEM 1 GM/50 ML 1 GM in Premix Bag 1 BAG IVPB SCH ×2 (05:51→12:29)
[2021-05-28] MEDS: hydrALAZINE 10 MG TAB PO SCH ×2 (08:32→14:54)
[2021-05-28] MEDS: Saccharomyces boulardii 250 MG CAP PO SCH (08:32)
[2021-05-28] MEDS: Carvedilol 3.125 MG TAB PO SCH (08:33)
[2021-05-28] MEDS: Gabapentin 300 MG CAP PO SCH (08:33)
[2021-05-28] MEDS: Famotidine 20 MG TAB PO SCH (08:33)
[2021-05-28] MEDS: Multivitamin W/ Minerals 1 TAB PO SCH (08:34)
[2021-05-28] MEDS: Furosemide 40 MG TAB PO SCH (08:34)
[2021-05-28] MEDS: Losartan 25 MG TAB PO SCH (08:34)
[2021-05-28] MEDS: Polyethylene Glycol 3350 17 GM Packet PO SCH (08:34)
[2021-05-28] MEDS: Thiamine 100 MG TAB PO SCH (08:34)
[2021-05-28] MEDS: Magnesium Oxide 400 MG TAB PO SCH (08:34)
[2021-05-28] MEDS: Folic Acid 1 MG TAB PO SCH (08:34)
[2021-05-28] MEDS: HYDROcodone/Acetaminophen 10/325 mg Tablet PO PRN ×2 (08:38→12:37)
[2021-05-28 14:56] VITALS: BP 159/80
== END 2021-05-28 15:40 | disposition home or self-care (01) | DRG 698 ==
LOC: 2NO 16:42 → T4-A 05-25 13:04
PROVIDERS: ADMIT Internal Medicine; ATTEND Internal Medicine
PROC: 02HV33Z Insertion of Infusion Device into Superior Vena Cava, Percutaneous Approach (ICD-10-PCS; principal; 2021-05-27)
PROC: B5181ZA Fluoroscopy of Superior Vena Cava using Low Osmolar Contrast, Guidance (ICD-10-PCS; 2021-05-27)
PROC: B548ZZA Ultrasonography of Superior Vena Cava, Guidance (ICD-10-PCS; 2021-05-27)
DX: T83.511A Infection and inflammatory reaction due to indwelling urethral catheter, initial encounter (principal); I21.A1 Myocardial infarction type 2; G83.4 Cauda equina syndrome; I50.32 Chronic diastolic (congestive) heart failure; N13.6 Pyonephrosis; G82.20 Paraplegia, unspecified; R78.81 Bacteremia; Z20.822 Contact with and (suspected) exposure to COVID-19; Z96.0 Presence of urogenital implants; J44.9 Chronic obstructive pulmonary disease, unspecified; E78.2 Mixed hyperlipidemia; I11.0 Hypertensive heart disease with heart failure; N31.9 Neuromuscular dysfunction of bladder, unspecified; F17.210 Nicotine dependence, cigarettes, uncomplicated; I25.10 Atherosclerotic heart disease of native coronary artery without angina pectoris; E66.01 Morbid (severe) obesity due to excess calories; F10.10 Alcohol abuse, uncomplicated; B96.4 Proteus (mirabilis) (morganii) as the cause of diseases classified elsewhere; B96.5 Pseudomonas (aeruginosa) (mallei) (pseudomallei) as the cause of diseases classified elsewhere; R31.0 Gross hematuria; Y84.6 Urinary catheterization as the cause of abnormal reaction of the patient, or of later complication, without mention of misadventure at the time of the procedure; Z88.0 Allergy status to penicillin; Z79.01 Long term (current) use of anticoagulants; Z79.82 Long term (current) use of aspirin; Z79.899 Other long term (current) drug therapy; I25.2 Old myocardial infarction; Z95.5 Presence of coronary angioplasty implant and graft; Z68.39 Body mass index [BMI] 39.0-39.9, adult; Z71.41 Alcohol abuse counseling and surveillance of alcoholic; Z71.6 Tobacco abuse counseling; Z91.81 History of falling
CPT/HCPCS: 36415; 36416; 36569; 74176; 80048; 80053; 80202; 83735; 84100; 85025; C1751; J0360; J1644; J2185; J2405; J3370; J3411; J3475; J3490; Q0162; U0003; U0005

== ENCOUNTER 2021-10-09 22:00 | Inpatient (IN) | payer MEDICARE ==
[2021-10-09] MEDS ORDERED: Cefepime 2 GM VIAL ONE (22:29)
[2021-10-09] MEDS ORDERED: Vancomycin 1 GM/200 ML BAG ONE (22:29)
[2021-10-09 22:47] LABS: Hemoglobin 11.4 g/dL (14.0-18.0); Mean Corpuscular HGB CONC 34.2 g/dL (32.0-36.0); Mean Platelet Volume 6.7 fL (7.4-10.4); Platelet Count 221 thou/uL (130-400); RBC Distribution Width 13.4 % (11.5-14.5); Red Blood Cell (RBC) Count 3.16 mill/uL (4.70-6.10)
[2021-10-09 22:49] LABS: INR-International Normal Ratio 1.2; Prothrombin Time 14.8 sec (12.0-14.7)
[2021-10-09 22:50] LABS: PTT 37.8 sec (22.9-36.1)
[2021-10-09 22:59] LABS: Bilirubin Negative (Negative); Blood, Urine 2+ (Negative); Clarity Turbid (Clear); Glucose, Urine (Dipstick) Normal (Negative); Ketone, Urine Negative (Negative); Leukocyte 500 Leu/uL (Negative); Nitrite Negative (Negative); Protein, Urine (Dipstick) 50 mg/dL (Neg-Trace); Specific Gravity, Urine 1.021 (1.002-1.036); Squamous Epithelial 0-3 HPF (0-3); Urobilinogen 3 mg/dL (Less than 2)
[2021-10-09 23:00] LABS: #Eosinphils 0.1 thou/uL (0.0-0.7); #Lymphocytes 0.8 thou/uL (1.20-3.40); #Monocytes 0.3 thou/uL (0.11-0.59); #Neutrophils 8.9 thou/uL (1.40-6.50); %Basophils 0.4 % (0.0-1.0); %Eosinophils 0.7 % (0.0-10.0); %Lymphocytes 7.6 % (21.0-51.0); %Monocytes 2.8 % (0.0-10.0); %Neutrophils 88.6 % (42.0-75.0)
[2021-10-09 23:09] LABS: ALT (SGPT) 18 U/L (8-55); AST (SGOT) 23 U/L (5-34); Albumin 3.6 g/dL (3.4-4.8); Alkaline Phosphatase 59 U/L (40-110); Anion Gap 15 mmol/L (10-20); Bilirubin, Total 0.9 mg/dL (0.2-1.2); Calc. Creatinine Clearance 0 mL/min (70-130); Calcium 9.4 mg/dL (7.8-10.44); Carbon Dioxide 21 mmol/L (23-31); Chloride 98 mmol/L (98-107); Globulin 4.6 g/dL (2.4-3.5); Glucose 106 mg/dL (80-115); Lipase 19 U/L (8-78); Magnesium 1.8 mg/dL (1.6-2.6); Protein, Total 8.2 g/dL (5.8-8.1); Sodium 130 mmol/L (136-145)
[2021-10-09 23:10] LABS: Bacteria/HPF 4+ HPF (None Seen)
[2021-10-09 23:11] LABS: WBC/HPF 21-50 HPF (0-3)
[2021-10-09 23:22] LABS: CKMB 0.6 ng/mL (0-6.6)
[2021-10-09 23:38] LABS: SARS-CoV-2 NAA Rapid Test Not Detected (NotDetected)
[2021-10-10] MEDS ORDERED: Lorazepam 1 MG TAB PO PRN
[2021-10-10 00:09] LABS: BUN (Urea Nitrogen) 17 mg/dL (8.4-25.7)
[2021-10-10] MEDS ORDERED: Acetaminophen 500 MG TAB ONE (00:39)
[2021-10-10] MEDS ORDERED: Meropenem 1 GM in Sodium Chloride 0.9% 100 ML IVPB SCH ×2 (01:15→15:30)
[2021-10-10 02:46] LABS: Troponin I 0.143 ng/mL (< 0.028)
[2021-10-10 03:04] VITALS: BMI 36.6
[2021-10-10 05:17] LABS: Troponin I 0.122 ng/mL (< 0.028)
[2021-10-10] MEDS ORDERED: Nitroglycerin 0.4 MG TAB (25 Tab Bottle) SL PRN (05:24)
[2021-10-10] MEDS ORDERED: Ondansetron PF 4 MG/2 ML Vial IVP PRN (05:24)
[2021-10-10] MEDS ORDERED: Aspirin 325 MG TAB PO SCH (05:30)
[2021-10-10] MEDS ORDERED: Lorazepam 2 MG/ML VIAL IM PRN (06:00)
[2021-10-10] MEDS ORDERED: Electrolyte Replacement Protocol 1 EACH FS PRN (06:00)
[2021-10-10] MEDS ORDERED: Ondansetron ODT 4 MG TAB PO PRN (06:00)
[2021-10-10] MEDS: Lorazepam 1 MG TAB PO SCH ×4 (06:04→23:46)
[2021-10-10] MEDS: Thiamine HCl 200 MG/2 ML VIAL SLOW IVP SCH (06:12)
[2021-10-10 06:41] LABS: #Lymphocytes 1.5 thou/uL (1.20-3.40); #Monocytes 1.1 thou/uL (0.11-0.59); #Neutrophils 6.8 thou/uL (1.40-6.50); %Basophils 0.1 % (0.0-1.0); %Eosinophils 0.2 % (0.0-10.0); %Lymphocytes 15.8 % (21.0-51.0); %Monocytes 11.8 % (0.0-10.0); %Neutrophils 72.1 % (42.0-75.0); Hemoglobin 9.3 g/dL (14.0-18.0); Mean Corpuscular Hemoglobin 33.7 pg (27.0-31.0); Mean Platelet Volume 6.5 fL (7.4-10.4); Platelet Count 197 thou/uL (130-400); RBC Distribution Width 13.2 % (11.5-14.5); Red Blood Cell (RBC) Count 2.74 mill/uL (4.70-6.10); White Blood Cell (WBC) Count 9.5 thou/uL (4.8-10.8)
[2021-10-10 06:58] LABS: Anion Gap 13 mmol/L (10-20); BUN (Urea Nitrogen) 16 mg/dL (8.4-25.7); Calc. Creatinine Clearance 110 mL/min (70-130); Calcium 8.7 mg/dL (7.8-10.44); Carbon Dioxide 21 mmol/L (23-31); Chloride 105 mmol/L (98-107); Glucose 106 mg/dL (80-115); Potassium 3.6 mmol/L (3.5-5.1); Sodium 135 mmol/L (136-145)
[2021-10-10] MEDS ORDERED: Magnesium 2 GM/50 ML 2 GM in Premix Bag 1 BAG IVPB SCH (08:00)
[2021-10-10] MEDS: Multivit, Therapeutic 1 TAB PO SCH (08:34)
[2021-10-10] MEDS: Folic Acid 1 MG TAB PO SCH (08:34)
[2021-10-10] MEDS: Vancomycin 1 GM in Premix Bag 1 BAG IVPB SCH ×2 (08:35→20:31)
[2021-10-10] MEDS ORDERED: Cefepime 2 GM in Sodium Chloride 0.9% 100 ML IVPB SCH (12:00)
[2021-10-10] MEDS ORDERED: FLU VACC QS2021-22(65YR UP)/PF 240 MCG/0.7 ML SYRINGE IM ONE (14:00)
[2021-10-10 14:35] LABS: Amphetamine Not Detected (NotDetected); Barbiturates Screen Not Detected (NotDetected); Benzodiazepine Screen Not Detected (NotDetected); Cocaine Metabolite Screen Not Detected (NotDetected); Methadone Not Detected (NotDetected); Methamphetamine Not Detected (NotDetected); Opiate Screen Detected (NotDetected); Oxycodone Screen Not Detected (NotDetected); Phencyclidine (PCP) Not Detected (NotDetected); THC/Cannabinoid Screen Not Detected (NotDetected); Tricyclic Screen Not Detected (NotDetected)
[2021-10-10] MEDS ORDERED: MEROPENEM 1 GM/50 ML 1 GM in Premix Bag 1 BAG IVPB SCH (14:45)
[2021-10-10 15:06] LABS: Thyroid Stimulating Hormone 0.6655 uIU/mL (0.35-4.94)
[2021-10-10] MEDS: Gabapentin 400 MG CAP PO SCH ×2 (15:15→20:30)
[2021-10-10] MEDS: Acetaminophen 325 MG TAB PO PRN (15:15)
[2021-10-10] MEDS: Meropenem 1 GM in Sodium Chloride 0.9% 100 ML IVPB SCH (17:53)
[2021-10-10] MEDS: Hyoscyamine Sulfate SL 0.125 mg Tablet SL SCH (17:53)
[2021-10-10] MEDS: Carvedilol 3.125 MG TAB PO SCH (20:30)
[2021-10-10] MEDS: Famotidine 20 MG TAB PO SCH (20:30)
[2021-10-10] MEDS: HYDROcodone/Acetaminophen 5/325 mg Tablet PO PRN (20:32)
[2021-10-10] MEDS ORDERED: Meropenem 2 GM in Admixture Fee 1 EACH IVPB SCH (22:00)
[2021-10-11] MEDS: Hyoscyamine Sulfate SL 0.125 mg Tablet SL SCH ×4 (00:20→18:01)
[2021-10-11] MEDS: Meropenem 1 GM in Sodium Chloride 0.9% 100 ML IVPB SCH ×3 (00:58→18:01)
[2021-10-11] MEDS: HYDROcodone/Acetaminophen 5/325 mg Tablet PO PRN ×3 (03:57→21:41)
[2021-10-11 05:36] LABS: Phosphorus 2.8 mg/dL (2.3-4.7)
[2021-10-11 05:40] LABS: Cardiac Risk 5.2 (Less than 4.5); Cholesterol 88 mg/dl (< 200 Desired); HDL Cholesterol 17 mg/dL (>60 Neg Risk); Magnesium 2.4 mg/dL (1.6-2.6)
[2021-10-11 05:55] LABS: LDL Cholesterol, Calculated 41 mg/dL; Triglycerides 157 mg/dL (Less than 150)
[2021-10-11] MEDS ORDERED: Lorazepam 1 MG TAB PO PRN (06:00)
[2021-10-11] MEDS: Thiamine HCl 200 MG/2 ML VIAL SLOW IVP SCH (06:25)
[2021-10-11] MEDS: Lorazepam 1 MG TAB PO SCH ×3 (06:25→18:02)
[2021-10-11] MEDS: Folic Acid 1 MG TAB PO SCH ×2 (08:55→08:56)
[2021-10-11] MEDS: Clopidogrel Bisulfate 75 MG TAB PO SCH (08:56)
[2021-10-11] MEDS: Carvedilol 3.125 MG TAB PO SCH ×2 (08:56→21:30)
[2021-10-11] MEDS: Enoxaparin Sodium 40 MG/0.4 ML SYRINGE SC SCH (08:56)
[2021-10-11] MEDS: Vancomycin 1 GM in Premix Bag 1 BAG IVPB SCH (08:56)
[2021-10-11] MEDS: Aspirin 81 mg Enteric Coated Tablet PO SCH (08:56)
[2021-10-11] MEDS: Gabapentin 400 MG CAP PO SCH ×4 (08:56→21:42)
[2021-10-11] MEDS: Multivit, Therapeutic 1 TAB PO SCH (08:56)
[2021-10-11] MEDS: Atorvastatin Calcium 40 MG TAB PO SCH (08:56)
[2021-10-11 09:13] LABS: Vancomycin, Trough 14.6 ug/mL
[2021-10-11 10:56] LABS: #Eosinphils 0.1 thou/uL (0.0-0.7); #Lymphocytes 1.3 thou/uL (1.20-3.40); #Monocytes 1.2 thou/uL (0.11-0.59); #Neutrophils 5.6 thou/uL (1.40-6.50); %Basophils 0.1 % (0.0-1.0); %Eosinophils 1.5 % (0.0-10.0); %Lymphocytes 15.3 % (21.0-51.0); %Monocytes 14.2 % (0.0-10.0); %Neutrophils 68.8 % (42.0-75.0); Hemoglobin 9.1 g/dL (14.0-18.0); Mean Corpuscular HGB CONC 32.2 g/dL (32.0-36.0); Mean Corpuscular Hemoglobin 34.7 pg (27.0-31.0); Mean Platelet Volume 6.5 fL (7.4-10.4); Platelet Count 211 thou/uL (130-400); RBC Distribution Width 13.3 % (11.5-14.5); Red Blood Cell (RBC) Count 2.63 mill/uL (4.70-6.10); White Blood Cell (WBC) Count 8.1 thou/uL (4.8-10.8)
[2021-10-11 11:16] LABS: ALT (SGPT) 16 U/L (8-55); AST (SGOT) 27 U/L (5-34); Alkaline Phosphatase 45 U/L (40-110); Anion Gap 12 mmol/L (10-20); BUN (Urea Nitrogen) 15 mg/dL (8.4-25.7); Bilirubin, Total 0.4 mg/dL (0.2-1.2); Calc. Creatinine Clearance 141 mL/min (70-130); Calcium 9.2 mg/dL (7.8-10.44); Carbon Dioxide 22 mmol/L (23-31); Chloride 106 mmol/L (98-107); Globulin 3.9 g/dL (2.4-3.5); Glucose 97 mg/dL (80-115); Potassium 3.9 mmol/L (3.5-5.1); Protein, Total 6.9 g/dL (5.8-8.1); Sodium 136 mmol/L (136-145)
[2021-10-11] MEDS: Nicotine 21 MG PATCH TD SCH (13:23)
[2021-10-11] MEDS ORDERED: Losartan 25 MG TAB PO SCH (21:00)
[2021-10-11] MEDS: VANCOMYCIN 1.25 GM/250 ML BAG 1.25 GM in Premix Bag 1 BAG IVPB SCH (21:23)
[2021-10-11] MEDS: Famotidine 20 MG TAB PO SCH (21:42)
[2021-10-12] MEDS: Lorazepam 1 MG TAB PO SCH (00:30)
[2021-10-12] MEDS: Hyoscyamine Sulfate SL 0.125 mg Tablet SL SCH ×5 (00:30→23:47)
[2021-10-12] MEDS: Meropenem 1 GM in Sodium Chloride 0.9% 100 ML IVPB SCH ×3 (01:35→17:47)
[2021-10-12] MEDS: HYDROcodone/Acetaminophen 5/325 mg Tablet PO PRN ×4 (03:23→23:48)
[2021-10-12 04:44] LABS: #Basophils 0.1 thou/uL (0.0-0.2); #Eosinphils 0.2 thou/uL (0.0-0.7); #Lymphocytes 1.8 thou/uL (1.20-3.40); #Monocytes 0.8 thou/uL (0.11-0.59); %Basophils 1.4 % (0.0-1.0); %Eosinophils 2.6 % (0.0-10.0); %Lymphocytes 25.8 % (21.0-51.0); %Monocytes 11.6 % (0.0-10.0); %Neutrophils 58.6 % (42.0-75.0); Hemoglobin 8.9 g/dL (14.0-18.0); Mean Corpuscular HGB CONC 32.9 g/dL (32.0-36.0); Mean Corpuscular Hemoglobin 35.1 pg (27.0-31.0); Mean Platelet Volume 6.6 fL (7.4-10.4); Platelet Count 217 thou/uL (130-400); RBC Distribution Width 13.5 % (11.5-14.5); Red Blood Cell (RBC) Count 2.54 mill/uL (4.70-6.10); White Blood Cell (WBC) Count 6.8 thou/uL (4.8-10.8)
[2021-10-12 05:05] LABS: ALT (SGPT) 15 U/L (8-55); AST (SGOT) 22 U/L (5-34); Albumin 2.9 g/dL (3.4-4.8); Alkaline Phosphatase 47 U/L (40-110); Anion Gap 12 mmol/L (10-20); BUN (Urea Nitrogen) 16 mg/dL (8.4-25.7); Bilirubin, Total 0.3 mg/dL (0.2-1.2); Calc. Creatinine Clearance 145 mL/min (70-130); Calcium 9.1 mg/dL (7.8-10.44); Carbon Dioxide 23 mmol/L (23-31); Chloride 105 mmol/L (98-107); Globulin 3.7 g/dL (2.4-3.5); Glucose 98 mg/dL (80-115); Potassium 3.6 mmol/L (3.5-5.1); Protein, Total 6.6 g/dL (5.8-8.1); Sodium 136 mmol/L (136-145)
[2021-10-12] MEDS ORDERED: Lorazepam 1 MG TAB PO PRN (06:00)
[2021-10-12] MEDS: Thiamine HCl 200 MG/2 ML VIAL SLOW IVP SCH (06:14)
[2021-10-12] MEDS: Lorazepam 0.5 MG TAB PO SCH ×4 (06:15→23:47)
[2021-10-12] MEDS: VANCOMYCIN 1.25 GM/250 ML BAG 1.25 GM in Premix Bag 1 BAG IVPB SCH (08:26)
[2021-10-12] MEDS: Enoxaparin Sodium 40 MG/0.4 ML SYRINGE SC SCH (08:27)
[2021-10-12] MEDS: Gabapentin 400 MG CAP PO SCH ×3 (08:27→20:12)
[2021-10-12] MEDS: Aspirin 81 mg Enteric Coated Tablet PO SCH (08:28)
[2021-10-12] MEDS: Atorvastatin Calcium 40 MG TAB PO SCH (08:28)
[2021-10-12] MEDS: Folic Acid 1 MG TAB PO SCH (08:28)
[2021-10-12] MEDS: Clopidogrel Bisulfate 75 MG TAB PO SCH (08:28)
[2021-10-12] MEDS: Multivit, Therapeutic 1 TAB PO SCH (08:28)
[2021-10-12] MEDS: Carvedilol 3.125 MG TAB PO SCH ×2 (08:28→20:12)
[2021-10-12] MEDS: Nicotine 21 MG PATCH TD SCH (13:59)
[2021-10-12] MEDS: Acetaminophen 325 MG TAB PO PRN (18:16)
[2021-10-12] MEDS ORDERED: Ibuprofen 200 MG TAB PO PRN (18:49)
[2021-10-12] MEDS: Morphine 4 MG/ML VIAL SLOW IVP PRN (19:19)
[2021-10-12] MEDS: Famotidine 20 MG TAB PO SCH (20:12)
[2021-10-12] MEDS ORDERED: Losartan 25 MG TAB PO SCH (21:00)
[2021-10-13] MEDS: Meropenem 1 GM in Sodium Chloride 0.9% 100 ML IVPB SCH ×3 (01:43→17:49)
[2021-10-13 05:09] LABS: #Eosinphils 0.2 thou/uL (0.0-0.7); #Monocytes 0.6 thou/uL (0.11-0.59); #Neutrophils 3.5 thou/uL (1.40-6.50); %Basophils 0.2 % (0.0-1.0); %Eosinophils 3.2 % (0.0-10.0); %Lymphocytes 31.8 % (21.0-51.0); %Neutrophils 55.8 % (42.0-75.0); Hemoglobin 8.7 g/dL (14.0-18.0); Mean Corpuscular HGB CONC 30.4 g/dL (32.0-36.0); Mean Corpuscular Hemoglobin 32.2 pg (27.0-31.0); Mean Platelet Volume 6.7 fL (7.4-10.4); Platelet Count 231 thou/uL (130-400); RBC Distribution Width 13.6 % (11.5-14.5); White Blood Cell (WBC) Count 6.3 thou/uL (4.8-10.8)
[2021-10-13] MEDS: Hyoscyamine Sulfate SL 0.125 mg Tablet SL SCH ×3 (05:24→19:25)
[2021-10-13 05:25] LABS: ALT (SGPT) 14 U/L (8-55); AST (SGOT) 17 U/L (5-34); Albumin 2.9 g/dL (3.4-4.8); Alkaline Phosphatase 47 U/L (40-110); Anion Gap 12 mmol/L (10-20); BUN (Urea Nitrogen) 15 mg/dL (8.4-25.7); Bilirubin, Total 0.3 mg/dL (0.2-1.2); Calc. Creatinine Clearance 148 mL/min (70-130); Calcium 9.1 mg/dL (7.8-10.44); Carbon Dioxide 23 mmol/L (23-31); Chloride 106 mmol/L (98-107); Globulin 3.6 g/dL (2.4-3.5); Glucose 106 mg/dL (80-115); Potassium 3.7 mmol/L (3.5-5.1); Protein, Total 6.5 g/dL (5.8-8.1); Sodium 137 mmol/L (136-145)
[2021-10-13] MEDS ORDERED: Lorazepam 0.5 MG TAB PO PRN (06:00)
[2021-10-13] MEDS: Morphine 4 MG/ML VIAL SLOW IVP PRN ×3 (09:10→23:41)
[2021-10-13] MEDS: Gabapentin 400 MG CAP PO SCH ×3 (09:17→20:04)
[2021-10-13] MEDS: Losartan 25 MG TAB PO SCH ×2 (09:17→20:04)
[2021-10-13] MEDS: Clopidogrel Bisulfate 75 MG TAB PO SCH (09:17)
[2021-10-13] MEDS: Aspirin 81 mg Enteric Coated Tablet PO SCH (09:17)
[2021-10-13] MEDS: Folic Acid 1 MG TAB PO SCH (09:18)
[2021-10-13] MEDS: Multivit, Therapeutic 1 TAB PO SCH (09:18)
[2021-10-13] MEDS: Thiamine 100 MG TAB PO SCH (09:18)
[2021-10-13] MEDS: Carvedilol 3.125 MG TAB PO SCH ×2 (09:18→20:04)
[2021-10-13] MEDS: Enoxaparin Sodium 40 MG/0.4 ML SYRINGE SC SCH (09:18)
[2021-10-13] MEDS: Atorvastatin Calcium 40 MG TAB PO SCH (09:18)
[2021-10-13] MEDS: Nicotine 21 MG PATCH TD SCH (14:45)
[2021-10-13] MEDS: HYDROcodone/Acetaminophen 5/325 mg Tablet PO PRN (17:50)
[2021-10-13] MEDS: Famotidine 20 MG TAB PO SCH (20:04)
[2021-10-14] MEDS: Meropenem 1 GM in Sodium Chloride 0.9% 100 ML IVPB SCH ×3 (01:16→18:26)
[2021-10-14] MEDS: Hyoscyamine Sulfate SL 0.125 mg Tablet SL SCH ×4 (01:24→18:26)
[2021-10-14 05:19] LABS: #Basophils 0.1 thou/uL (0.0-0.2); #Eosinphils 0.3 thou/uL (0.0-0.7); #Lymphocytes 2.2 thou/uL (1.20-3.40); #Monocytes 0.8 thou/uL (0.11-0.59); #Neutrophils 3.7 thou/uL (1.40-6.50); %Eosinophils 3.8 % (0.0-10.0); %Lymphocytes 30.7 % (21.0-51.0); %Monocytes 11.7 % (0.0-10.0); %Neutrophils 52.7 % (42.0-75.0); Hemoglobin 9.1 g/dL (14.0-18.0); Mean Corpuscular HGB CONC 33.8 g/dL (32.0-36.0); Mean Corpuscular Hemoglobin 35.4 pg (27.0-31.0); Mean Platelet Volume 6.6 fL (7.4-10.4); Platelet Count 226 thou/uL (130-400); RBC Distribution Width 13.4 % (11.5-14.5); Red Blood Cell (RBC) Count 2.58 mill/uL (4.70-6.10); White Blood Cell (WBC) Count 7.1 thou/uL (4.8-10.8)
[2021-10-14 05:46] LABS: ALT (SGPT) 14 U/L (8-55); AST (SGOT) 15 U/L (5-34); Albumin 2.9 g/dL (3.4-4.8); Alkaline Phosphatase 48 U/L (40-110); Anion Gap 9 mmol/L (10-20); BUN (Urea Nitrogen) 12 mg/dL (8.4-25.7); Bilirubin, Total 0.3 mg/dL (0.2-1.2); Calc. Creatinine Clearance 155 mL/min (70-130); Calcium 9.2 mg/dL (7.8-10.44); Carbon Dioxide 26 mmol/L (23-31); Chloride 103 mmol/L (98-107); Globulin 3.6 g/dL (2.4-3.5); Glucose 107 mg/dL (80-115); Potassium 3.8 mmol/L (3.5-5.1); Protein, Total 6.5 g/dL (5.8-8.1); Sodium 134 mmol/L (136-145)
[2021-10-14] MEDS: Morphine 4 MG/ML VIAL SLOW IVP PRN (09:19)
[2021-10-14] MEDS: Enoxaparin Sodium 40 MG/0.4 ML SYRINGE SC SCH (10:10)
[2021-10-14] MEDS: Losartan 25 MG TAB PO SCH ×2 (10:10→20:49)
[2021-10-14] MEDS: Gabapentin 400 MG CAP PO SCH ×3 (10:10→20:49)
[2021-10-14] MEDS: Clopidogrel Bisulfate 75 MG TAB PO SCH (10:10)
[2021-10-14] MEDS: Multivit, Therapeutic 1 TAB PO SCH (10:11)
[2021-10-14] MEDS: Folic Acid 1 MG TAB PO SCH (10:11)
[2021-10-14] MEDS: Atorvastatin Calcium 40 MG TAB PO SCH (10:11)
[2021-10-14] MEDS: Carvedilol 3.125 MG TAB PO SCH ×2 (10:11→20:50)
[2021-10-14] MEDS: Thiamine 100 MG TAB PO SCH (10:11)
[2021-10-14] MEDS: Aspirin 81 mg Enteric Coated Tablet PO SCH (10:11)
[2021-10-14] MEDS: Nicotine 21 MG PATCH TD SCH (13:59)
[2021-10-14] MEDS: HYDROcodone/Acetaminophen 5/325 mg Tablet PO PRN ×2 (14:59→21:39)
[2021-10-14] MEDS ORDERED: Melatonin 3 MG TAB PO PRN (17:45)
[2021-10-14] MEDS: Famotidine 20 MG TAB PO SCH (20:50)
[2021-10-15] MEDS: Meropenem 1 GM in Sodium Chloride 0.9% 100 ML IVPB SCH ×3 (02:53→17:56)
[2021-10-15] MEDS: Hyoscyamine Sulfate SL 0.125 mg Tablet SL SCH ×4 (03:02→17:56)
[2021-10-15] MEDS: HYDROcodone/Acetaminophen 5/325 mg Tablet PO PRN ×2 (05:57→18:58)
[2021-10-15] MEDS: Morphine 4 MG/ML VIAL SLOW IVP PRN ×2 (06:02→11:37)
[2021-10-15] MEDS: Enoxaparin Sodium 40 MG/0.4 ML SYRINGE SC SCH (08:58)
[2021-10-15] MEDS: Carvedilol 3.125 MG TAB PO SCH ×2 (08:59→18:59)
[2021-10-15] MEDS: Gabapentin 400 MG CAP PO SCH ×3 (08:59→18:58)
[2021-10-15] MEDS: Multivit, Therapeutic 1 TAB PO SCH (09:01)
[2021-10-15] MEDS: Losartan 25 MG TAB PO SCH ×2 (09:01→18:58)
[2021-10-15] MEDS: Aspirin 81 mg Enteric Coated Tablet PO SCH (09:01)
[2021-10-15] MEDS: Atorvastatin Calcium 40 MG TAB PO SCH (09:01)
[2021-10-15] MEDS: Thiamine 100 MG TAB PO SCH (09:02)
[2021-10-15] MEDS: Clopidogrel Bisulfate 75 MG TAB PO SCH (09:02)
[2021-10-15] MEDS: Folic Acid 1 MG TAB PO SCH (09:02)
[2021-10-15] MEDS: Nicotine 21 MG PATCH TD SCH (11:37)
[2021-10-15] MEDS: hydrALAZINE 10 MG TAB PO SCH ×2 (15:50→18:59)
[2021-10-15 19:04] VITALS: BP 184/79; TEMP 97.8
[2021-10-15] MEDS ORDERED: tiZANidine HCl 4 MG TAB PO SCH (21:00)
== END 2021-10-15 19:34 | disposition swing bed (61) | DRG 698 ==
LOC: ERS 22:00 → 2NO 10-10 01:08
PROVIDERS: ADMIT Internal Medicine; ATTEND Family Medicine
PROC: 02HV33Z Insertion of Infusion Device into Superior Vena Cava, Percutaneous Approach (ICD-10-PCS; principal; 2021-10-14)
PROC: B5181ZA Fluoroscopy of Superior Vena Cava using Low Osmolar Contrast, Guidance (ICD-10-PCS; 2021-10-14)
PROC: B548ZZA Ultrasonography of Superior Vena Cava, Guidance (ICD-10-PCS; 2021-10-14)
DX: T83.511A Infection and inflammatory reaction due to indwelling urethral catheter, initial encounter (principal); Z20.822 Contact with and (suspected) exposure to COVID-19; A41.51 Sepsis due to Escherichia coli [E. coli]; R65.20 Severe sepsis without septic shock; G93.41 Metabolic encephalopathy; I21.A1 Myocardial infarction type 2; N13.6 Pyonephrosis; I50.32 Chronic diastolic (congestive) heart failure; Z16.24 Resistance to multiple antibiotics; Y84.6 Urinary catheterization as the cause of abnormal reaction of the patient, or of later complication, without mention of misadventure at the time of the procedure; F17.210 Nicotine dependence, cigarettes, uncomplicated; D53.9 Nutritional anemia, unspecified; J44.9 Chronic obstructive pulmonary disease, unspecified; M25.78 Osteophyte, vertebrae; N31.9 Neuromuscular dysfunction of bladder, unspecified; E78.5 Hyperlipidemia, unspecified; I11.0 Hypertensive heart disease with heart failure; G89.4 Chronic pain syndrome; F10.10 Alcohol abuse, uncomplicated; I25.10 Atherosclerotic heart disease of native coronary artery without angina pectoris; I08.1 Rheumatic disorders of both mitral and tricuspid valves; H91.93 Unspecified hearing loss, bilateral; I87.2 Venous insufficiency (chronic) (peripheral); Z88.0 Allergy status to penicillin; I25.2 Old myocardial infarction; Z28.21 Immunization not carried out because of patient refusal; Z79.899 Other long term (current) drug therapy; Z79.82 Long term (current) use of aspirin; Z79.02 Long term (current) use of antithrombotics/antiplatelets; Z95.5 Presence of coronary angioplasty implant and graft; Z82.49 Family history of ischemic heart disease and other diseases of the circulatory system
CPT/HCPCS: 0240U; 36415; 36569; 70450; 71045; 72125; 74176; 80048; 80053; 80061; 80202; 80306; 80307; 81003; 81015; 82140; 82553; 82607; 82746; 83605; 83690; 83735; 83880; 84100; 84145; 84443; 84484; 85025; 85610; 85730; 87040; 87077; 87086; 87149; 87186; 93005; 93306; 94760; 96365; 96367; C1751; J0692; J1650; J2185; J2270; J3370; J3411; J3475; J3490; Q0162

== ENCOUNTER 2022-01-21 11:50 | Inpatient (IN) | payer MEDICARE ==
[2022-01-21 14:49] LABS: CKMB 2.1 ng/mL (0-6.6)
[2022-01-21] MEDS ORDERED: Nitroglycerin 0.4 MG TAB (25 Tab Bottle) SL PRN (14:59)
[2022-01-21] MEDS ORDERED: Ondansetron PF 4 MG/2 ML Vial IVP PRN (15:06)
[2022-01-21] MEDS ORDERED: Meropenem 1 GM in Sodium Chloride 0.9% 100 ML IVPB SCH (16:00)
[2022-01-21 16:13] LABS: Vancomycin, Trough 23.1 ug/mL
[2022-01-21 16:33] LABS: Troponin I 3.233 ng/mL (< 0.028)
[2022-01-21 17:07] LABS: Lactic Acid 3.5 mmol/L (0.5-2.2)
[2022-01-21] MEDS: Sodium Chloride 0.9% 1,000 ML IV SCH (17:10)
[2022-01-21 20:37] VITALS: BMI 35.4
[2022-01-21] MEDS: Carvedilol 3.125 MG TAB PO SCH (22:05)
[2022-01-21] MEDS: Atorvastatin Calcium 40 MG TAB PO SCH (22:05)
[2022-01-22] MEDS: Meropenem 1 GM in Sodium Chloride 0.9% 100 ML IVPB SCH ×2 (01:19→13:53)
[2022-01-22 04:05] LABS: Anion Gap 16 mmol/L (10-20); BUN (Urea Nitrogen) 38 mg/dL (8.4-25.7); Calc. Creatinine Clearance 63 mL/min (70-130); Calcium 8.7 mg/dL (7.8-10.44); Carbon Dioxide 19 mmol/L (23-31); Chloride 108 mmol/L (98-107); Glucose 101 mg/dL (80-115); Potassium 4.3 mmol/L (3.5-5.1); Sodium 139 mmol/L (136-145)
[2022-01-22 04:10] LABS: Band 32 % (5-11); Hemoglobin 12.3 g/dL (14.0-18.0); Hypochromia SLIGHT = 6-15 cells (100X) (0-5/hpf); Lymphocytes 4 % (21-51); MDiff Complete? YES; Macrocytosis SLIGHT = 6-15 cells (100X) (0-5/hpf); Mean Corpuscular HGB CONC 31.3 g/dL (32.0-36.0); Mean Corpuscular Hemoglobin 32.4 pg (27.0-31.0); Mean Platelet Volume 8.2 fL (7.4-10.4); Metamyelocyte 3 % (0-0); Monocytes 6 % (0-10); Myelocyte 2 % (0-0); Neutrophil 53 % (42-75); Platelet Count 138 thou/uL (130-400); Platelet Morphology Comment Appears Adequate; Polychromasia SLIGHT = 2-3 cells (100X) (0-2/hpf); RBC Distribution Width 13.7 % (11.5-14.5); White Blood Cell (WBC) Count 35.5 thou/uL (4.8-10.8)
[2022-01-22] MEDS: Sodium Chloride 0.9% 1,000 ML IV SCH ×2 (07:56→12:18)
[2022-01-22] MEDS: Carvedilol 3.125 MG TAB PO SCH ×2 (09:23→20:27)
[2022-01-22] MEDS: Aspirin 81 mg Enteric Coated Tablet PO SCH (09:23)
[2022-01-22] MEDS: Morphine 4 MG/ML VIAL SLOW IVP PRN ×3 (09:27→20:26)
[2022-01-22] MEDS ORDERED: VANCOMYCIN 1.75 GM/350 ML BAG 1.75 GM in Premix Bag 1 BAG IVPB SCH (10:00)
[2022-01-22] MEDS ORDERED: Vancomycin HCl 1.75 GM in Sodium Chloride 0.9% 500 ML IVPB SCH (10:00)
[2022-01-22] MEDS: Nicotine 14 MG PATCH TD SCH (14:05)
[2022-01-22] MEDS: hydrALAZINE 10 MG TAB PO SCH ×2 (14:05→20:29)
[2022-01-22] MEDS: Gabapentin 400 MG CAP PO SCH ×2 (14:06→20:27)
[2022-01-22] MEDS ORDERED: Gabapentin 400 MG CAP PO SCH (15:00)
[2022-01-22] MEDS: HYDROcodone/Acetaminophen 10/325 mg Tablet PO PRN (16:09)
[2022-01-22 18:46] LABS: SARS-CoV-2 PCR by NAA Not Detected (NotDetected)
[2022-01-22] MEDS: Atorvastatin Calcium 40 MG TAB PO SCH (20:27)
[2022-01-22] MEDS: Acetaminophen 325 MG TAB PO PRN (20:28)
[2022-01-23] MEDS: Sodium Chloride 0.9% 1,000 ML IV SCH (00:32)
[2022-01-23] MEDS: Meropenem 1 GM in Sodium Chloride 0.9% 100 ML IVPB SCH (00:32)
[2022-01-23 06:36] LABS: Band 39 % (5-11); Eosinophils 2 % (0-10); Hemoglobin 10.3 g/dL (14.0-18.0); Hypochromia SLIGHT = 6-15 cells (100X) (0-5/hpf); Lymphocytes 8 % (21-51); MDiff Complete? YES; Macrocytosis SLIGHT = 6-15 cells (100X) (0-5/hpf); Mean Corpuscular HGB CONC 32.3 g/dL (32.0-36.0); Mean Corpuscular Hemoglobin 33.6 pg (27.0-31.0); Mean Platelet Volume 7.9 fL (7.4-10.4); Monocytes 7 % (0-10); Neutrophil 43 % (42-75); Platelet Count 102 thou/uL (130-400); Platelet Morphology Comment Appears Adequate; RBC Distribution Width 13.6 % (11.5-14.5); Reactive Lymphocytes 1 % (0-10); Red Blood Cell (RBC) Count 3.07 mill/uL (4.70-6.10); White Blood Cell (WBC) Count 17.8 thou/uL (4.8-10.8)
[2022-01-23 06:42] LABS: Anion Gap 10 mmol/L (10-20); BUN (Urea Nitrogen) 30 mg/dL (8.4-25.7); Calc. Creatinine Clearance 99 mL/min (70-130); Calcium 8.6 mg/dL (7.8-10.44); Carbon Dioxide 23 mmol/L (23-31); Chloride 108 mmol/L (98-107); Glucose 99 mg/dL (80-115); Potassium 3.8 mmol/L (3.5-5.1); Sodium 137 mmol/L (136-145)
[2022-01-23] MEDS: Morphine 4 MG/ML VIAL SLOW IVP PRN ×3 (08:23→20:36)
[2022-01-23] MEDS: Aspirin 81 mg Enteric Coated Tablet PO SCH (08:24)
[2022-01-23] MEDS: Gabapentin 400 MG CAP PO SCH ×3 (08:24→20:42)
[2022-01-23] MEDS: Carvedilol 3.125 MG TAB PO SCH ×2 (08:24→20:41)
[2022-01-23] MEDS: hydrALAZINE 10 MG TAB PO SCH ×3 (08:24→20:42)
[2022-01-23 09:40] LABS: Vancomycin, Trough 15.3 ug/mL
[2022-01-23] MEDS: HYDROcodone/Acetaminophen 10/325 mg Tablet PO PRN ×3 (10:06→23:38)
[2022-01-23] MEDS: Nicotine 14 MG PATCH TD SCH (14:28)
[2022-01-23] MEDS: Atorvastatin Calcium 40 MG TAB PO SCH (20:41)
[2022-01-24 07:26] LABS: Hemoglobin 9.6 g/dL (14.0-18.0); Mean Corpuscular HGB CONC 31.9 g/dL (32.0-36.0); Mean Corpuscular Hemoglobin 33.1 pg (27.0-31.0); Mean Platelet Volume 7.7 fL (7.4-10.4); Platelet Count 103 thou/uL (130-400); RBC Distribution Width 13.5 % (11.5-14.5); Red Blood Cell (RBC) Count 2.92 mill/uL (4.70-6.10); White Blood Cell (WBC) Count 9.1 thou/uL (4.8-10.8)
[2022-01-24 07:41] LABS: Anion Gap 11 mmol/L (10-20); BUN (Urea Nitrogen) 16 mg/dL (8.4-25.7); Calc. Creatinine Clearance 138 mL/min (70-130); Calcium 8.9 mg/dL (7.8-10.44); Carbon Dioxide 22 mmol/L (23-31); Chloride 109 mmol/L (98-107); Glucose 99 mg/dL (80-115); Potassium 4.1 mmol/L (3.5-5.1); Sodium 138 mmol/L (136-145)
[2022-01-24] MEDS: Aspirin 81 mg Enteric Coated Tablet PO SCH (07:52)
[2022-01-24] MEDS: Carvedilol 3.125 MG TAB PO SCH ×2 (07:52→20:39)
[2022-01-24] MEDS: Gabapentin 400 MG CAP PO SCH ×3 (07:52→20:37)
[2022-01-24] MEDS: hydrALAZINE 10 MG TAB PO SCH ×2 (07:53→13:49)
[2022-01-24 08:07] LABS: Band 2 % (5-11); Eosinophils 1 % (0-10); Lymphocytes 20 % (21-51); MDiff Complete? YES; Monocytes 5 % (0-10); Neutrophil 71 % (42-75); Platelet Morphology Comment Appears Decreased
[2022-01-24] MEDS: Nicotine 14 MG PATCH TD SCH (13:49)
[2022-01-24] MEDS: HYDROcodone/Acetaminophen 10/325 mg Tablet PO PRN (13:50)
[2022-01-24] MEDS: hydrALAZINE 25 MG TAB PO SCH ×2 (16:28→20:38)
[2022-01-24] MEDS: Atorvastatin Calcium 40 MG TAB PO SCH (20:37)
[2022-01-24] MEDS: Acetaminophen 325 MG TAB PO PRN (20:43)
[2022-01-25 07:48] LABS: Anion Gap 13 mmol/L (10-20); BUN (Urea Nitrogen) 16 mg/dL (8.4-25.7); Calc. Creatinine Clearance 151 mL/min (70-130); Calcium 9.3 mg/dL (7.8-10.44); Carbon Dioxide 22 mmol/L (23-31); Chloride 108 mmol/L (98-107); Glucose 110 mg/dL (80-115); Magnesium 1.8 mg/dL (1.6-2.6); Phosphorus 3.9 mg/dL (2.3-4.7); Potassium 4.1 mmol/L (3.5-5.1); Sodium 139 mmol/L (136-145)
[2022-01-25] MEDS: Gabapentin 400 MG CAP PO SCH ×2 (08:26→14:51)
[2022-01-25] MEDS: Aspirin 81 mg Enteric Coated Tablet PO SCH (08:27)
[2022-01-25] MEDS: hydrALAZINE 25 MG TAB PO SCH ×3 (08:27→19:10)
[2022-01-25] MEDS: Carvedilol 3.125 MG TAB PO SCH ×2 (08:28→19:10)
[2022-01-25] MEDS: HYDROcodone/Acetaminophen 10/325 mg Tablet PO PRN ×2 (09:39→16:26)
[2022-01-25 12:37] VITALS: TEMP 97.8
[2022-01-25] MEDS: Nicotine 14 MG PATCH TD SCH (14:51)
[2022-01-25] MEDS: Acetaminophen 325 MG TAB PO PRN (16:45)
[2022-01-25 19:11] VITALS: BP 167/78
== END 2022-01-25 19:52 | disposition home health service (06) | DRG 698 ==
LOC: ERS 11:50 → ERHOLD 14:44 → IMCU/EMU 19:17 → 2NO 01-24 16:48
PROVIDERS: ADMIT Internal Medicine; ATTEND Internal Medicine
DX: T83.511A Infection and inflammatory reaction due to indwelling urethral catheter, initial encounter (principal); Z20.822 Contact with and (suspected) exposure to COVID-19; A41.4 Sepsis due to anaerobes; I21.A1 Myocardial infarction type 2; R65.21 Severe sepsis with septic shock; N30.01 Acute cystitis with hematuria; G83.4 Cauda equina syndrome; I50.32 Chronic diastolic (congestive) heart failure; N17.9 Acute kidney failure, unspecified; T82.855A Stenosis of coronary artery stent, initial encounter; J44.9 Chronic obstructive pulmonary disease, unspecified; F17.210 Nicotine dependence, cigarettes, uncomplicated; I25.10 Atherosclerotic heart disease of native coronary artery without angina pectoris; R33.9 Retention of urine, unspecified; F10.10 Alcohol abuse, uncomplicated; M54.9 Dorsalgia, unspecified; G89.29 Other chronic pain; E78.2 Mixed hyperlipidemia; I11.0 Hypertensive heart disease with heart failure; Y83.1 Surgical operation with implant of artificial internal device as the cause of abnormal reaction of the patient, or of later complication, without mention of misadventure at the time of the procedure; Y84.0 Cardiac catheterization as the cause of abnormal reaction of the patient, or of later complication, without mention of misadventure at the time of the procedure; I25.2 Old myocardial infarction; Z87.440 Personal history of urinary (tract) infections; Z88.0 Allergy status to penicillin; Z79.899 Other long term (current) drug therapy; Z79.82 Long term (current) use of aspirin; Z79.02 Long term (current) use of antithrombotics/antiplatelets; Z95.5 Presence of coronary angioplasty implant and graft
CPT/HCPCS: 36415; 80048; 80202; 82553; 83605; 83735; 84100; 84484; 85025; 87086; 94760; J1956; J2185; J2270; J2405; J3370; J3490; J7030; J7050; U0003; U0005

== ENCOUNTER 2022-02-22 10:07 | Outpatient (CLI) | payer MEDICARE ==
[2022-02-22 23:06] LABS: SARS-CoV-2 PCR by NAA Not Detected (NotDetected)
== END 2022-02-22 10:08 | disposition home or self-care (01) ==
LOC: LABBT 10:07
PROVIDERS: ATTEND Urology
DX: Z20.822 Contact with and (suspected) exposure to COVID-19 (principal)
CPT/HCPCS: U0003; U0005

== ENCOUNTER 2022-02-25 08:36 | Day surgery (SDC) | payer MEDICARE ==
[2022-02-25 08:41] LABS: #Eosinphils 0.2 thou/uL (0.0-0.7); #Lymphocytes 2.6 thou/uL (1.20-3.40); #Monocytes 0.7 thou/uL (0.11-0.59); #Neutrophils 7.4 thou/uL (1.40-6.50); %Basophils 0.3 % (0.0-1.0); %Eosinophils 1.5 % (0.0-10.0); %Lymphocytes 23.5 % (21.0-51.0); %Monocytes 6.4 % (0.0-10.0); %Neutrophils 68.3 % (42.0-75.0); Hemoglobin 13.4 g/dL (14.0-18.0); Mean Corpuscular HGB CONC 33.1 g/dL (32.0-36.0); Mean Platelet Volume 7.2 fL (7.4-10.4); Platelet Count 228 thou/uL (130-400); RBC Distribution Width 13.7 % (11.5-14.5); Red Blood Cell (RBC) Count 3.94 mill/uL (4.70-6.10); White Blood Cell (WBC) Count 10.9 thou/uL (4.8-10.8)
[2022-02-25 08:54] LABS: PTT 31.5 sec (22.9-36.1); Prothrombin Time 13.6 sec (12.0-14.7)
[2022-02-25] MEDS ORDERED: Midazolam HCl 2 mg/2 ml Vial ONE (10:09)
[2022-02-25] MEDS ORDERED: Fentanyl 100 MCG/2 ML VIAL ONE (10:09)
[2022-02-25] MEDS ORDERED: Sodium Bicarbonate 2.5 MEQ/5 ML VIAL ONE (10:09)
[2022-02-25 12:08] VITALS: BP 148/77; TEMP 97.8
== END 2022-02-25 13:20 | disposition home or self-care (01) ==
LOC: SPEC 08:36
PROVIDERS: ATTEND Urology
PROC: 0T9B30Z Drainage of Bladder with Drainage Device, Percutaneous Approach (ICD-10-PCS; principal; 2022-02-25)
DX: N31.9 Neuromuscular dysfunction of bladder, unspecified (principal); F17.200 Nicotine dependence, unspecified, uncomplicated; Z79.02 Long term (current) use of antithrombotics/antiplatelets; Z79.82 Long term (current) use of aspirin; Z79.899 Other long term (current) drug therapy; Z88.0 Allergy status to penicillin
CPT/HCPCS: 51102; 77002; 85025; 85610; 85730; C2627; J2250; J3010

== ENCOUNTER 2022-08-01 12:20 | Inpatient (IN) | payer MEDICARE ==
[2022-08-01] MEDS ORDERED: Cefepime 2 GM VIAL ONE (13:20)
[2022-08-01] MEDS ORDERED: Fentanyl 100 MCG/2 ML VIAL ONE (13:20)
[2022-08-01] MEDS ORDERED: Heparin 1,000 UNITS/ML VIAL ONE (13:38)
[2022-08-01 13:51] LABS: #Basophils 0.1 thou/uL (0.0-0.2); #Eosinphils 0.2 thou/uL (0.0-0.7); #Monocytes 1.5 thou/uL (0.11-0.59); #Neutrophils 10.2 thou/uL (1.40-6.50); %Basophils 0.6 % (0.0-1.0); %Eosinophils 1.4 % (0.0-10.0); %Lymphocytes 19.8 % (21.0-51.0); %Monocytes 9.7 % (0.0-10.0); %Neutrophils 68.5 % (42.0-75.0); Hemoglobin 11.3 g/dL (14.0-18.0); Mean Corpuscular HGB CONC 33.4 g/dL (32.0-36.0); Mean Corpuscular Hemoglobin 35.2 pg (27.0-31.0); Mean Platelet Volume 6.6 fL (7.4-10.4); Platelet Count 277 thou/uL (130-400); RBC Distribution Width 11.8 % (11.5-14.5); Red Blood Cell (RBC) Count 3.21 mill/uL (4.70-6.10); White Blood Cell (WBC) Count 14.9 thou/uL (4.8-10.8)
[2022-08-01 14:02] LABS: ALT (SGPT) 10 U/L (8-55); AST (SGOT) 13 U/L (5-34); Albumin 3.6 g/dL (3.4-4.8); Alkaline Phosphatase 61 U/L (40-110); Anion Gap 15 mmol/L (10-20); BUN (Urea Nitrogen) 18 mg/dL (8.4-25.7); Bilirubin, Total 0.7 mg/dL (0.2-1.2); CK (CPK) 28 U/L (30-200); Calc. Creatinine Clearance 0 mL/min (70-130); Calcium 9.8 mg/dL (7.8-10.44); Carbon Dioxide 23 mmol/L (23-31); Chloride 101 mmol/L (98-107); Estimated GFR 89; Globulin 3.8 g/dL (2.4-3.5); Glucose 103 mg/dL (80-115); Potassium 4.7 mmol/L (3.5-5.1); Protein, Total 7.4 g/dL (5.8-8.1); Sodium 134 mmol/L (136-145)
[2022-08-01] MEDS ORDERED: VANCOMYCIN 2 GRAM/500 ML BAG 2 GM in Premix Bag 1 BAG IVPB SCH (14:15)
[2022-08-01 14:51] LABS: Bilirubin Negative (Negative); Blood, Urine Negative (Negative); Clarity Clear (Clear); Glucose, Urine (Dipstick) Normal (Negative); Ketone, Urine Negative (Negative); Leukocyte 500 Leu/uL (Negative); Nitrite 2+ (Negative); Protein, Urine (Dipstick) Negative (Neg-Trace); Specific Gravity, Urine 1.012 (1.002-1.036); Urobilinogen Normal mg/dL (Less than 2); pH, Urine 5.5 (5.0-9.0)
[2022-08-01 15:03] LABS: RBC/HPF None Seen HPF (0-3)
[2022-08-01 15:04] LABS: Bacteria/HPF 1+ HPF (None Seen); Squamous Epithelial None Seen HPF (0-3)
[2022-08-01] MEDS ORDERED: Acetaminophen 325 MG TAB PO PRN (16:28)
[2022-08-01] MEDS ORDERED: Ondansetron PF 4 MG/2 ML Vial IVP PRN (16:28)
[2022-08-01] MEDS ORDERED: Lorazepam 2 MG/ML VIAL IM PRN (16:28)
[2022-08-01] MEDS ORDERED: Lorazepam 1 MG TAB PO PRN (16:28)
[2022-08-01] MEDS ORDERED: Ondansetron ODT 4 MG TAB PO PRN (16:28)
[2022-08-01] MEDS ORDERED: Electrolyte Replacement Protocol 1 EACH FS SCH (16:30)
[2022-08-01 17:13] VITALS: BMI 34.7
[2022-08-01 17:13] LABS: Magnesium 2.3 mg/dL (1.6-2.6); Phosphorus 3.7 mg/dL (2.3-4.7)
[2022-08-01] MEDS: Carvedilol 3.125 MG TAB PO SCH (17:23)
[2022-08-01] MEDS: Morphine 2 MG/ML VIAL SLOW IVP PRN (17:23)
[2022-08-01] MEDS ORDERED: FLU VACC QS2022-23(65YR UP)/PF 240 MCG/0.7 ML SYRINGE IM ONE (17:45)
[2022-08-01] MEDS: HYDROcodone/Acetaminophen 10/325 mg Tablet PO SCH (18:24)
[2022-08-01] MEDS ORDERED: Meropenem 1 GM in Sodium Chloride 0.9% 100 ML IVPB SCH ×2 (19:00→22:00)
[2022-08-01] MEDS ORDERED: Folic Acid 1 MG TAB PO SCH (19:30)
[2022-08-01] MEDS ORDERED: Multivit, Therapeutic 1 TAB PO SCH (19:30)
[2022-08-01] MEDS: Losartan 25 MG TAB PO SCH (20:42)
[2022-08-01] MEDS: Gabapentin 400 MG CAP PO SCH (20:42)
[2022-08-01] MEDS: Atorvastatin Calcium 40 MG TAB PO SCH (20:42)
[2022-08-02] MEDS: HYDROcodone/Acetaminophen 10/325 mg Tablet PO SCH ×4 (01:20→17:16)
[2022-08-02] MEDS: VANCOMYCIN 1.25 GM/250 ML BAG 1.25 GM in Premix Bag 1 BAG IVPB SCH ×2 (02:04→14:54)
[2022-08-02] MEDS: Meropenem 1 GM in Sodium Chloride 0.9% 100 ML IVPB SCH ×3 (04:07→18:29)
[2022-08-02 06:17] LABS: #Basophils 0.1 thou/uL (0.0-0.2); #Eosinphils 0.2 thou/uL (0.0-0.7); #Lymphocytes 2.2 thou/uL (1.20-3.40); #Monocytes 1.1 thou/uL (0.11-0.59); #Neutrophils 7.2 thou/uL (1.40-6.50); %Basophils 0.5 % (0.0-1.0); %Eosinophils 2.2 % (0.0-10.0); %Monocytes 10.5 % (0.0-10.0); %Neutrophils 66.7 % (42.0-75.0); Hemoglobin 10.9 g/dL (14.0-18.0); Mean Corpuscular HGB CONC 33.4 g/dL (32.0-36.0); Mean Corpuscular Hemoglobin 35.7 pg (27.0-31.0); Mean Platelet Volume 6.2 fL (7.4-10.4); Platelet Count 257 thou/uL (130-400); RBC Distribution Width 11.8 % (11.5-14.5); Red Blood Cell (RBC) Count 3.05 mill/uL (4.70-6.10); White Blood Cell (WBC) Count 10.8 thou/uL (4.8-10.8)
[2022-08-02 06:49] LABS: Anion Gap 13 mmol/L (10-20); BUN (Urea Nitrogen) 17 mg/dL (8.4-25.7); Calc. Creatinine Clearance 137 mL/min (70-130); Calcium 9.6 mg/dL (7.8-10.44); Carbon Dioxide 24 mmol/L (23-31); Chloride 104 mmol/L (98-107); Estimated GFR 96; Glucose 116 mg/dL (80-115); Potassium 4.1 mmol/L (3.5-5.1); Sodium 137 mmol/L (136-145)
[2022-08-02] MEDS: Losartan 25 MG TAB PO SCH ×2 (08:42→20:59)
[2022-08-02] MEDS: Venlafaxine HCl XR 150 MG CAP PO SCH (08:42)
[2022-08-02] MEDS: Thiamine 100 MG TAB PO SCH (08:42)
[2022-08-02] MEDS: Gabapentin 400 MG CAP PO SCH ×3 (08:42→20:59)
[2022-08-02] MEDS: Multivit, Therapeutic 1 TAB PO SCH (08:42)
[2022-08-02] MEDS: Furosemide 40 MG TAB PO SCH (08:42)
[2022-08-02] MEDS: Folic Acid 1 MG TAB PO SCH (08:42)
[2022-08-02] MEDS: Morphine 2 MG/ML VIAL SLOW IVP PRN ×3 (08:43→21:54)
[2022-08-02] MEDS: Carvedilol 3.125 MG TAB PO SCH ×2 (08:43→17:17)
[2022-08-02] MEDS ORDERED: Clopidogrel Bisulfate 75 MG TAB PO SCH (09:00)
[2022-08-02] MEDS: Nicotine 21 MG PATCH TD PRN (15:02)
[2022-08-02] MEDS ORDERED: Lorazepam 1 MG TAB PO PRN (16:28)
[2022-08-02 17:45] LABS: INR-International Normal Ratio 1.1; PTT 37.3 sec (22.9-36.1); Prothrombin Time 14.4 sec (12.0-14.7)
[2022-08-02] MEDS: Atorvastatin Calcium 40 MG TAB PO SCH (20:59)
[2022-08-03] MEDS: HYDROcodone/Acetaminophen 10/325 mg Tablet PO SCH ×4 (00:59→16:38)
[2022-08-03] MEDS: VANCOMYCIN 1.25 GM/250 ML BAG 1.25 GM in Premix Bag 1 BAG IVPB SCH ×2 (02:42→15:43)
[2022-08-03] MEDS: Meropenem 1 GM in Sodium Chloride 0.9% 100 ML IVPB SCH ×3 (04:37→17:55)
[2022-08-03 06:46] LABS: #Eosinphils 0.3 thou/uL (0.0-0.7); #Lymphocytes 2.5 thou/uL (1.20-3.40); #Monocytes 0.9 thou/uL (0.11-0.59); #Neutrophils 5.2 thou/uL (1.40-6.50); %Basophils 0.2 % (0.0-1.0); %Eosinophils 3.3 % (0.0-10.0); %Lymphocytes 28.3 % (21.0-51.0); %Monocytes 10.1 % (0.0-10.0); %Neutrophils 58.1 % (42.0-75.0); Hemoglobin 10.3 g/dL (14.0-18.0); Mean Corpuscular HGB CONC 32.6 g/dL (32.0-36.0); Mean Corpuscular Hemoglobin 34.4 pg (27.0-31.0); Mean Platelet Volume 6.7 fL (7.4-10.4); Platelet Count 261 thou/uL (130-400); RBC Distribution Width 11.8 % (11.5-14.5); White Blood Cell (WBC) Count 8.9 thou/uL (4.8-10.8)
[2022-08-03 06:59] LABS: Anion Gap 12 mmol/L (10-20); BUN (Urea Nitrogen) 15 mg/dL (8.4-25.7); Calc. Creatinine Clearance 159 mL/min (70-130); Carbon Dioxide 25 mmol/L (23-31); Chloride 104 mmol/L (98-107); Potassium 3.9 mmol/L (3.5-5.1); Sodium 137 mmol/L (136-145)
[2022-08-03 07:00] LABS: Calcium 9.6 mg/dL (7.8-10.44); Estimated GFR 100; Glucose 114 mg/dL (80-115)
[2022-08-03] MEDS: Furosemide 40 MG TAB PO SCH (08:41)
[2022-08-03] MEDS: Gabapentin 400 MG CAP PO SCH ×3 (08:41→20:17)
[2022-08-03] MEDS: Carvedilol 3.125 MG TAB PO SCH ×2 (08:41→15:28)
[2022-08-03] MEDS: Folic Acid 1 MG TAB PO SCH (08:41)
[2022-08-03] MEDS: Multivit, Therapeutic 1 TAB PO SCH (08:42)
[2022-08-03] MEDS: Losartan 25 MG TAB PO SCH ×2 (08:42→20:19)
[2022-08-03] MEDS: Thiamine 100 MG TAB PO SCH (08:42)
[2022-08-03] MEDS: Venlafaxine HCl XR 150 MG CAP PO SCH (08:42)
[2022-08-03] MEDS ORDERED: Fentanyl 100 MCG/2 ML VIAL ONE ×3 (09:21→12:55)
[2022-08-03] MEDS ORDERED: Lidocaine 2% 6 ML SYR ONE (11:06)
[2022-08-03] MEDS ORDERED: fentaNYL Citrate/PF 100 MCG/2 ML SYRINGE ONE (11:06)
[2022-08-03] MEDS ORDERED: Midazolam HCl 2 mg/2 ml Vial ONE (11:06)
[2022-08-03] MEDS ORDERED: PROPOFOL 200 MG/20 ML VIAL ONE (11:13)
[2022-08-03] MEDS ORDERED: Rocuronium Bromide 10 MG/ML (10ML VIAL) ONE (11:13)
[2022-08-03] MEDS ORDERED: Glycopyrrolate 0.2 MG/ML 5 ML SYRINGE ONE (11:13)
[2022-08-03] MEDS ORDERED: Ondansetron PF 4 MG/2 ML Vial ONE (11:13)
[2022-08-03] MEDS ORDERED: NEOSTIGMINE 3 MG/3 ML SYR 3 MG/3 ML SYRINGE ONE (11:13)
[2022-08-03] MEDS ORDERED: Ketorolac Tromethamine 30 MG/ML VIAL ONE (11:13)
[2022-08-03] MEDS ORDERED: Promethazine HCl 25 MG/ML VIAL IM PRN (12:12)
[2022-08-03] MEDS ORDERED: Ondansetron HCl/PF 4 MG/2 ML Vial IVP PRN (12:12)
[2022-08-03] MEDS ORDERED: Promethazine HCl 25 MG/ML VIAL IVPB PRN (12:12)
[2022-08-03] MEDS ORDERED: Promethazine HCl 25 MG/ML VIAL ONE (12:59)
[2022-08-03] MEDS ORDERED: Famotidine 20 MG TAB PO PRN (13:44)
[2022-08-03] MEDS: Morphine 2 MG/ML VIAL SLOW IVP PRN ×2 (14:46→22:10)
[2022-08-03] MEDS ORDERED: Gabapentin 400 MG CAP PO SCH ×2 (15:22→15:30)
[2022-08-03] MEDS ORDERED: Lorazepam 1 MG TAB PO PRN (16:28)
[2022-08-03] MEDS: Atorvastatin Calcium 40 MG TAB PO SCH (20:18)
[2022-08-03] MEDS ORDERED: Aspirin 81 mg Enteric Coated Tablet PO SCH (21:00)
[2022-08-04] MEDS: HYDROcodone/Acetaminophen 10/325 mg Tablet PO SCH ×5 (00:30→23:31)
[2022-08-04] MEDS: VANCOMYCIN 1.25 GM/250 ML BAG 1.25 GM in Premix Bag 1 BAG IVPB SCH ×2 (02:36→14:34)
[2022-08-04] MEDS: Meropenem 1 GM in Sodium Chloride 0.9% 100 ML IVPB SCH ×3 (05:50→17:50)
[2022-08-04 05:56] LABS: #Basophils 0.1 thou/uL (0.0-0.2); #Eosinphils 0.3 thou/uL (0.0-0.7); #Lymphocytes 2.4 thou/uL (1.20-3.40); #Monocytes 0.9 thou/uL (0.11-0.59); #Neutrophils 5.7 thou/uL (1.40-6.50); %Basophils 0.7 % (0.0-1.0); %Eosinophils 3.2 % (0.0-10.0); %Lymphocytes 25.6 % (21.0-51.0); %Monocytes 9.3 % (0.0-10.0); %Neutrophils 61.2 % (42.0-75.0); Hemoglobin 10.5 g/dL (14.0-18.0); Mean Corpuscular HGB CONC 31.8 g/dL (32.0-36.0); Mean Corpuscular Hemoglobin 34.6 pg (27.0-31.0); Mean Platelet Volume 6.5 fL (7.4-10.4); Platelet Count 280 thou/uL (130-400); RBC Distribution Width 11.7 % (11.5-14.5); Red Blood Cell (RBC) Count 3.04 mill/uL (4.70-6.10); White Blood Cell (WBC) Count 9.4 thou/uL (4.8-10.8)
[2022-08-04 06:19] LABS: Anion Gap 13 mmol/L (10-20); BUN (Urea Nitrogen) 13 mg/dL (8.4-25.7); Calc. Creatinine Clearance 140 mL/min (70-130); Calcium 9.2 mg/dL (7.8-10.44); Carbon Dioxide 24 mmol/L (23-31); Chloride 105 mmol/L (98-107); Estimated GFR 97; Glucose 110 mg/dL (80-115); Potassium 4.4 mmol/L (3.5-5.1); Sodium 138 mmol/L (136-145)
[2022-08-04] MEDS: Morphine 2 MG/ML VIAL SLOW IVP PRN ×2 (08:26→21:19)
[2022-08-04] MEDS: Gabapentin 400 MG CAP PO SCH ×3 (09:25→20:29)
[2022-08-04] MEDS: Furosemide 40 MG TAB PO SCH (09:26)
[2022-08-04] MEDS: Folic Acid 1 MG TAB PO SCH (09:26)
[2022-08-04] MEDS: Thiamine 100 MG TAB PO SCH (09:26)
[2022-08-04] MEDS: Losartan 25 MG TAB PO SCH ×2 (09:26→20:28)
[2022-08-04] MEDS: Venlafaxine HCl XR 150 MG CAP PO SCH (09:26)
[2022-08-04] MEDS: Multivit, Therapeutic 1 TAB PO SCH (09:26)
[2022-08-04] MEDS: Carvedilol 3.125 MG TAB PO SCH ×2 (09:27→17:50)
[2022-08-04] MEDS ORDERED: Sterile Water 10 ML ONE (12:23)
[2022-08-04] MEDS ORDERED: Lorazepam 0.5 MG TAB PO PRN (16:28)
[2022-08-04] MEDS: Atorvastatin Calcium 40 MG TAB PO SCH (20:29)
[2022-08-05] MEDS: Meropenem 1 GM in Sodium Chloride 0.9% 100 ML IVPB SCH ×3 (02:05→18:20)
[2022-08-05 02:23] LABS: #Basophils 0.1 thou/uL (0.0-0.2); #Eosinphils 0.4 thou/uL (0.0-0.7); #Lymphocytes 3.2 thou/uL (1.20-3.40); #Monocytes 1.2 thou/uL (0.11-0.59); #Neutrophils 6.1 thou/uL (1.40-6.50); %Basophils 0.9 % (0.0-1.0); %Eosinophils 3.5 % (0.0-10.0); %Lymphocytes 29.2 % (21.0-51.0); %Monocytes 10.6 % (0.0-10.0); %Neutrophils 55.8 % (42.0-75.0); Hemoglobin 11.2 g/dL (14.0-18.0); Mean Corpuscular HGB CONC 31.4 g/dL (32.0-36.0); Mean Corpuscular Hemoglobin 34.1 pg (27.0-31.0); Mean Platelet Volume 6.5 fL (7.4-10.4); Platelet Count 263 thou/uL (130-400); RBC Distribution Width 11.8 % (11.5-14.5); Red Blood Cell (RBC) Count 3.29 mill/uL (4.70-6.10); White Blood Cell (WBC) Count 10.9 thou/uL (4.8-10.8)
[2022-08-05 02:35] LABS: Vancomycin, Trough 24.7 ug/mL
[2022-08-05 02:47] LABS: Anion Gap 15 mmol/L (10-20); BUN (Urea Nitrogen) 17 mg/dL (8.4-25.7); CRP (Inflammatory) 4.12 mg/dL (= or < 0.5); Calc. Creatinine Clearance 137 mL/min (70-130); Calcium 9.6 mg/dL (7.8-10.44); Carbon Dioxide 25 mmol/L (23-31); Chloride 102 mmol/L (98-107); Estimated GFR 96; Glucose 109 mg/dL (80-115); Magnesium 2.2 mg/dL (1.6-2.6); Potassium 4.4 mmol/L (3.5-5.1); Sodium 138 mmol/L (136-145)
[2022-08-05] MEDS: Vancomycin 1 GM in Premix Bag 1 BAG IVPB SCH ×2 (03:00→15:56)
[2022-08-05] MEDS: HYDROcodone/Acetaminophen 10/325 mg Tablet PO SCH ×3 (05:19→18:20)
[2022-08-05] MEDS: Gabapentin 400 MG CAP PO SCH ×3 (08:34→20:42)
[2022-08-05] MEDS: Folic Acid 1 MG TAB PO SCH (08:35)
[2022-08-05] MEDS: Thiamine 100 MG TAB PO SCH (08:35)
[2022-08-05] MEDS: Venlafaxine HCl XR 150 MG CAP PO SCH (08:35)
[2022-08-05] MEDS: Losartan 25 MG TAB PO SCH ×2 (08:35→20:42)
[2022-08-05] MEDS: Furosemide 40 MG TAB PO SCH (08:35)
[2022-08-05] MEDS: Multivit, Therapeutic 1 TAB PO SCH (08:35)
[2022-08-05] MEDS: Enoxaparin Sodium 40 MG/0.4 ML SYRINGE SC SCH (08:36)
[2022-08-05] MEDS: Carvedilol 3.125 MG TAB PO SCH ×2 (08:40→16:01)
[2022-08-05] MEDS: Morphine 2 MG/ML VIAL SLOW IVP PRN ×2 (09:45→16:09)
[2022-08-05] MEDS: Atorvastatin Calcium 40 MG TAB PO SCH (20:42)
[2022-08-05] MEDS: Nicotine 21 MG PATCH TD PRN (20:52)
[2022-08-05] MEDS: Morphine 4 MG/ML VIAL SLOW IVP PRN (22:28)
[2022-08-06] MEDS: HYDROcodone/Acetaminophen 10/325 mg Tablet PO SCH ×5 (00:17→23:14)
[2022-08-06] MEDS: Vancomycin 1 GM in Premix Bag 1 BAG IVPB SCH (02:07)
[2022-08-06] MEDS: Meropenem 1 GM in Sodium Chloride 0.9% 100 ML IVPB SCH ×3 (03:24→17:54)
[2022-08-06 06:08] LABS: #Eosinphils 0.5 thou/uL (0.0-0.7); #Lymphocytes 2.7 thou/uL (1.20-3.40); #Monocytes 0.9 thou/uL (0.11-0.59); #Neutrophils 4.7 thou/uL (1.40-6.50); %Basophils 0.5 % (0.0-1.0); %Eosinophils 5.2 % (0.0-10.0); %Monocytes 9.8 % (0.0-10.0); %Neutrophils 53.6 % (42.0-75.0); Hemoglobin 10.8 g/dL (14.0-18.0); Mean Corpuscular HGB CONC 31.6 g/dL (32.0-36.0); Mean Corpuscular Hemoglobin 33.7 pg (27.0-31.0); Mean Platelet Volume 6.6 fL (7.4-10.4); Platelet Count 272 thou/uL (130-400); RBC Distribution Width 11.7 % (11.5-14.5); White Blood Cell (WBC) Count 8.8 thou/uL (4.8-10.8)
[2022-08-06 06:26] LABS: Anion Gap 12 mmol/L (10-20); BUN (Urea Nitrogen) 15 mg/dL (8.4-25.7); Calc. Creatinine Clearance 153 mL/min (70-130); Calcium 9.7 mg/dL (7.8-10.44); Carbon Dioxide 28 mmol/L (23-31); Chloride 102 mmol/L (98-107); Estimated GFR 99; Glucose 112 mg/dL (80-115); Magnesium 2.2 mg/dL (1.6-2.6); Potassium 4.2 mmol/L (3.5-5.1); Sodium 138 mmol/L (136-145)
[2022-08-06] MEDS: Morphine 4 MG/ML VIAL SLOW IVP PRN ×3 (08:51→22:06)
[2022-08-06] MEDS: Multivit, Therapeutic 1 TAB PO SCH (09:55)
[2022-08-06] MEDS: Gabapentin 400 MG CAP PO SCH ×3 (09:55→20:14)
[2022-08-06] MEDS: Carvedilol 3.125 MG TAB PO SCH ×2 (09:56→17:53)
[2022-08-06] MEDS: Venlafaxine HCl XR 150 MG CAP PO SCH (09:57)
[2022-08-06] MEDS: Losartan 25 MG TAB PO SCH ×2 (09:58→20:15)
[2022-08-06] MEDS: Folic Acid 1 MG TAB PO SCH (09:59)
[2022-08-06] MEDS: Thiamine 100 MG TAB PO SCH (09:59)
[2022-08-06] MEDS: Furosemide 40 MG TAB PO SCH (09:59)
[2022-08-06] MEDS: Enoxaparin Sodium 40 MG/0.4 ML SYRINGE SC SCH (09:59)
[2022-08-06] MEDS ORDERED: Iopamidol 200 41% 50 ML VIAL FS ONE (11:21)
[2022-08-06 14:15] LABS: Vancomycin, Trough 23.7 ug/mL
[2022-08-06] MEDS: Vancomycin HCl 750 MG in Sodium Chloride 0.9% 250 ML 250 ML IVPB SCH (15:43)
[2022-08-06] MEDS: Atorvastatin Calcium 40 MG TAB PO SCH (20:14)
[2022-08-06] MEDS: Nicotine 21 MG PATCH TD PRN (20:15)
[2022-08-06] MEDS ORDERED: Aspirin 81 mg Enteric Coated Tablet PO SCH (21:00)
[2022-08-07] MEDS: Vancomycin HCl 750 MG in Sodium Chloride 0.9% 250 ML 250 ML IVPB SCH ×2 (03:09→15:45)
[2022-08-07] MEDS: Meropenem 1 GM in Sodium Chloride 0.9% 100 ML IVPB SCH ×2 (03:09→10:27)
[2022-08-07] MEDS: HYDROcodone/Acetaminophen 10/325 mg Tablet PO SCH ×2 (05:14→12:43)
[2022-08-07 05:54] LABS: Anion Gap 12 mmol/L (10-20); BUN (Urea Nitrogen) 14 mg/dL (8.4-25.7); Calc. Creatinine Clearance 159 mL/min (70-130); Calcium 9.5 mg/dL (7.8-10.44); Carbon Dioxide 29 mmol/L (23-31); Chloride 101 mmol/L (98-107); Estimated GFR 100; Glucose 104 mg/dL (80-115); Magnesium 2.3 mg/dL (1.6-2.6); Potassium 4.4 mmol/L (3.5-5.1); Sodium 138 mmol/L (136-145)
[2022-08-07 05:56] LABS: #Basophils 0.1 thou/uL (0.0-0.2); #Eosinphils 0.4 thou/uL (0.0-0.7); #Monocytes 0.9 thou/uL (0.11-0.59); #Neutrophils 5.5 thou/uL (1.40-6.50); %Basophils 0.7 % (0.0-1.0); %Eosinophils 3.9 % (0.0-10.0); %Lymphocytes 30.4 % (21.0-51.0); %Monocytes 9.4 % (0.0-10.0); %Neutrophils 55.6 % (42.0-75.0); Hemoglobin 10.1 g/dL (14.0-18.0); Mean Corpuscular HGB CONC 31.7 g/dL (32.0-36.0); Mean Corpuscular Hemoglobin 33.8 pg (27.0-31.0); Mean Platelet Volume 6.9 fL (7.4-10.4); Platelet Count 261 thou/uL (130-400); RBC Distribution Width 11.6 % (11.5-14.5); White Blood Cell (WBC) Count 9.9 thou/uL (4.8-10.8)
[2022-08-07] MEDS: Furosemide 40 MG TAB PO SCH (08:55)
[2022-08-07] MEDS: Losartan 25 MG TAB PO SCH (08:55)
[2022-08-07] MEDS: Enoxaparin Sodium 40 MG/0.4 ML SYRINGE SC SCH (08:55)
[2022-08-07] MEDS: Gabapentin 400 MG CAP PO SCH ×2 (08:55→15:03)
[2022-08-07] MEDS: Folic Acid 1 MG TAB PO SCH (08:56)
[2022-08-07] MEDS: Thiamine 100 MG TAB PO SCH (08:56)
[2022-08-07] MEDS: Venlafaxine HCl XR 150 MG CAP PO SCH (08:56)
[2022-08-07] MEDS: Multivit, Therapeutic 1 TAB PO SCH (08:56)
[2022-08-07] MEDS: Carvedilol 3.125 MG TAB PO SCH (08:56)
[2022-08-07] MEDS: Morphine 4 MG/ML VIAL SLOW IVP PRN ×2 (09:01→15:46)
[2022-08-07 12:31] VITALS: BP 111/70; TEMP 97.5
== END 2022-08-07 16:17 | disposition swing bed (61) | DRG 463 ==
LOC: ERS 12:20 → T4-B 15:13
PROVIDERS: ADMIT Family Medicine; ATTEND Family Medicine
PROC: 0JB70ZZ Excision of Back Subcutaneous Tissue and Fascia, Open Approach (ICD-10-PCS; principal; 2022-08-03)
PROC: 0T2BX0Z Change Drainage Device in Bladder, External Approach (ICD-10-PCS; 2022-08-04)
PROC: 02HV33Z Insertion of Infusion Device into Superior Vena Cava, Percutaneous Approach (ICD-10-PCS; 2022-08-06)
PROC: B548ZZA Ultrasonography of Superior Vena Cava, Guidance (ICD-10-PCS; 2022-08-06)
DX: M86.18 Other acute osteomyelitis, other site (principal); L89.154 Pressure ulcer of sacral region, stage 4; L89.523 Pressure ulcer of left ankle, stage 3; I96 Gangrene, not elsewhere classified; E87.1 Hypo-osmolality and hyponatremia; K59.2 Neurogenic bowel, not elsewhere classified; I50.32 Chronic diastolic (congestive) heart failure; Z20.822 Contact with and (suspected) exposure to COVID-19; N39.0 Urinary tract infection, site not specified; G83.4 Cauda equina syndrome; T83.510A Infection and inflammatory reaction due to cystostomy catheter, initial encounter; J44.9 Chronic obstructive pulmonary disease, unspecified; I11.0 Hypertensive heart disease with heart failure; E78.5 Hyperlipidemia, unspecified; F17.210 Nicotine dependence, cigarettes, uncomplicated; F12.10 Cannabis abuse, uncomplicated; F32.A Depression, unspecified; L89.320 Pressure ulcer of left buttock, unstageable; I87.2 Venous insufficiency (chronic) (peripheral); I25.118 Atherosclerotic heart disease of native coronary artery with other forms of angina pectoris; B96.5 Pseudomonas (aeruginosa) (mallei) (pseudomallei) as the cause of diseases classified elsewhere; Z88.0 Allergy status to penicillin; Z79.82 Long term (current) use of aspirin; Z79.899 Other long term (current) drug therapy; I25.2 Old myocardial infarction; Z95.5 Presence of coronary angioplasty implant and graft; Z90.49 Acquired absence of other specified parts of digestive tract; Z82.49 Family history of ischemic heart disease and other diseases of the circulatory system; Y73.1 Therapeutic (nonsurgical) and rehabilitative gastroenterology and urology devices associated with adverse incidents; D53.9 Nutritional anemia, unspecified; Z71.6 Tobacco abuse counseling; B96.20 Unspecified Escherichia coli [E. coli] as the cause of diseases classified elsewhere; B96.4 Proteus (mirabilis) (morganii) as the cause of diseases classified elsewhere; B95.2 Enterococcus as the cause of diseases classified elsewhere; B96.89 Other specified bacterial agents as the cause of diseases classified elsewhere; Z87.440 Personal history of urinary (tract) infections; M48.061 Spinal stenosis, lumbar region without neurogenic claudication; F10.20 Alcohol dependence, uncomplicated
CPT/HCPCS: 36415; 36569; 72197; 80048; 80053; 80202; 81003; 81015; 82550; 83605; 83735; 84100; 85025; 85610; 85652; 85730; 86140; 86850; 86900; 86901; 87040; 87070; 87077; 87086; 87186; 87205; 88304; 93005; 96365; 96375; 97139; C1751; J0692; J1644; J1650; J1885; J2185; J2250; J2270; J2405; J2550; J2704; J3010; J3370; J3490; J7050; U0003; U0005

== ENCOUNTER 2022-10-20 22:49 | Emergency (ER) | payer MEDICARE ==
[2022-10-20 23:51] LABS: #Eosinphils 0.2 thou/uL (0.0-0.7); #Lymphocytes 2.1 thou/uL (1.20-3.40); #Monocytes 1.4 thou/uL (0.11-0.59); #Neutrophils 10.1 thou/uL (1.40-6.50); %Basophils 0.3 % (0.0-1.0); %Eosinophils 1.5 % (0.0-10.0); %Lymphocytes 15.2 % (21.0-51.0); Hemoglobin 10.4 g/dL (14.0-18.0); Mean Corpuscular HGB CONC 33.6 g/dL (32.0-36.0); Mean Corpuscular Hemoglobin 33.2 pg (27.0-31.0); Mean Corpuscular Volume 98.9 fl (78.0-98.0); Mean Platelet Volume 6.8 fL (7.4-10.4); Platelet Count 301 10x3/uL (130-400); RBC Distribution Width 13.1 % (11.5-14.5); Red Blood Cell (RBC) Count 3.15 mill/uL (4.70-6.10); White Blood Cell (WBC) Count 13.8 10x3/uL (4.8-10.8)
[2022-10-21 00:15] LABS: ALT (SGPT) 13 U/L (8-55); AST (SGOT) 17 U/L (5-34); Albumin 3.5 g/dL (3.4-4.8); Alkaline Phosphatase 56 U/L (40-110); Anion Gap 16 mmol/L (10-20); BUN (Urea Nitrogen) 15 mg/dL (8.4-25.7); Bilirubin, Total 0.4 mg/dL (0.2-1.2); Calc. Creatinine Clearance 0 mL/min (70-130); Calcium 9.3 mg/dL (7.8-10.44); Carbon Dioxide 20 mmol/L (23-31); Chloride 104 mmol/L (98-107); Estimated GFR 82; Globulin 3.8 g/dL (2.4-3.5); Glucose 145 mg/dL (80-115); Lipase 45 U/L (8-78); Potassium 2.8 mmol/L (3.5-5.1); Protein, Total 7.3 g/dL (5.8-8.1); Sodium 137 mmol/L (136-145)
[2022-10-21] MEDS ORDERED: HYDROcodone/Acetaminophen 10/325 mg Tablet ONE (00:51)
[2022-10-21] MEDS ORDERED: Ondansetron PF 4 MG/2 ML Vial ONE (00:52)
[2022-10-21 01:32] LABS: SARS-CoV-2 NAA Rapid Test Not Detected (NotDetected)
[2022-10-21] MEDS ORDERED: Ketorolac Tromethamine 30 MG/ML VIAL ONE (03:36)
== END 2022-10-21 05:39 | disposition home or self-care (01) ==
LOC: ERS 22:49
DX: R11.10 Vomiting, unspecified (principal); R19.7 Diarrhea, unspecified; J44.9 Chronic obstructive pulmonary disease, unspecified; I11.0 Hypertensive heart disease with heart failure; I50.9 Heart failure, unspecified; E78.5 Hyperlipidemia, unspecified; F17.210 Nicotine dependence, cigarettes, uncomplicated; Z79.899 Other long term (current) drug therapy; Z79.82 Long term (current) use of aspirin; Z20.822 Contact with and (suspected) exposure to COVID-19
CPT/HCPCS: 0240U; 80053; 83605; 83690; 85025; 87040; 36415; 96374; 96375; J1885; J2405

== ENCOUNTER 2022-12-22 22:52 | Inpatient (IN) | payer MEDICARE ==
[2022-12-22] MEDS ORDERED: Ondansetron ODT 4 MG TAB PO PRN (23:53)
[2022-12-22] MEDS ORDERED: Acetaminophen 650 MG Suppository PR PRN (23:53)
[2022-12-22] MEDS ORDERED: Morphine 4 MG/ML VIAL SLOW IVP PRN (23:57)
[2022-12-23 00:30] VITALS: BMI 32.8
[2022-12-23] MEDS ORDERED: Vancomycin 1 GM in Premix Bag 1 BAG IVPB SCH (01:15)
[2022-12-23 05:58] LABS: SARS-CoV-2 NAA Rapid Test Not Detected (NotDetected)
[2022-12-23 06:49] LABS: #Eosinphils 0.2 thou/uL (0.0-0.7); #Monocytes 1.1 thou/uL (0.11-0.59); #Neutrophils 5.3 thou/uL (1.40-6.50); %Basophils 0.2 % (0.0-1.0); %Eosinophils 2.3 % (0.0-10.0); %Lymphocytes 31.4 % (21.0-51.0); %Monocytes 11.8 % (0.0-10.0); %Neutrophils 54.3 % (42.0-75.0); Hemoglobin 10.3 g/dL (14.0-18.0); Mean Corpuscular HGB CONC 32.8 g/dL (32.0-36.0); Mean Corpuscular Volume 97.6 fl (78.0-98.0); Mean Platelet Volume 6.7 fL (7.4-10.4); Platelet Count 279 10x3/uL (130-400); RBC Distribution Width 14.9 % (11.5-14.5); Red Blood Cell (RBC) Count 3.21 mill/uL (4.70-6.10); White Blood Cell (WBC) Count 9.7 10x3/uL (4.8-10.8)
[2022-12-23 07:09] LABS: Anion Gap 14 mmol/L (10-20); BUN (Urea Nitrogen) 14 mg/dL (8.4-25.7); Calc. Creatinine Clearance 141 mL/min (70-130); Calcium 9.1 mg/dL (7.8-10.44); Carbon Dioxide 21 mmol/L (23-31); Chloride 104 mmol/L (98-107); Estimated GFR 98; Glucose 86 mg/dL (80-115); Potassium 4.2 mmol/L (3.5-5.1); Sodium 135 mmol/L (136-145)
[2022-12-23] MEDS: Cefepime 2 GM in Sodium Chloride 0.9% 100 ML IVPB SCH ×2 (08:55→21:17)
[2022-12-23] MEDS ORDERED: Nicotine 21 MG PATCH TD PRN (09:12)
[2022-12-23] MEDS ORDERED: Carvedilol 3.125 MG TAB PO SCH (09:30)
[2022-12-23] MEDS: HYDROcodone/Acetaminophen 10/325 mg Tablet PO PRN ×2 (09:39→17:32)
[2022-12-23] MEDS: Acetaminophen 325 MG TAB PO PRN (12:16)
[2022-12-23] MEDS: Gabapentin 400 MG CAP PO SCH ×2 (14:52→21:20)
[2022-12-23] MEDS: Vancomycin 1.5 GRAM/300 ML BAG 1.5 GM in Premix Bag 1 BAG IVPB SCH (14:53)
[2022-12-23] MEDS: Carvedilol 3.125 MG TAB PO SCH (16:35)
[2022-12-23] MEDS ORDERED: Aspirin 81 mg Enteric Coated Tablet PO SCH (21:00)
[2022-12-23] MEDS ORDERED: Clopidogrel Bisulfate 75 MG TAB PO SCH (21:00)
[2022-12-23] MEDS: Famotidine 20 MG TAB PO SCH (21:19)
[2022-12-23] MEDS: Venlafaxine HCl XR 150 MG CAP PO SCH (21:20)
[2022-12-23] MEDS: Atorvastatin Calcium 40 MG TAB PO SCH (21:20)
[2022-12-24] MEDS: Vancomycin 1.5 GRAM/300 ML BAG 1.5 GM in Premix Bag 1 BAG IVPB SCH ×2 (02:37→15:04)
[2022-12-24 05:59] LABS: #Basophils 0.1 thou/uL (0.0-0.2); #Eosinphils 0.2 thou/uL (0.0-0.7); #Lymphocytes 2.2 thou/uL (1.20-3.40); #Monocytes 0.9 thou/uL (0.11-0.59); #Neutrophils 6.7 thou/uL (1.40-6.50); %Basophils 0.7 % (0.0-1.0); %Eosinophils 2.2 % (0.0-10.0); %Monocytes 8.9 % (0.0-10.0); %Neutrophils 66.2 % (42.0-75.0); Hemoglobin 10.5 g/dL (14.0-18.0); Mean Corpuscular HGB CONC 31.8 g/dL (32.0-36.0); Mean Corpuscular Hemoglobin 31.3 pg (27.0-31.0); Mean Corpuscular Volume 98.6 fl (78.0-98.0); Mean Platelet Volume 6.5 fL (7.4-10.4); Platelet Count 302 10x3/uL (130-400); RBC Distribution Width 14.8 % (11.5-14.5); Red Blood Cell (RBC) Count 3.35 mill/uL (4.70-6.10); White Blood Cell (WBC) Count 10.1 10x3/uL (4.8-10.8)
[2022-12-24 06:21] LABS: Anion Gap 13 mmol/L (10-20); BUN (Urea Nitrogen) 14 mg/dL (8.4-25.7); Calc. Creatinine Clearance 145 mL/min (70-130); Calcium 9.6 mg/dL (7.8-10.44); Carbon Dioxide 22 mmol/L (23-31); Chloride 106 mmol/L (98-107); Estimated GFR 99; Glucose 95 mg/dL (80-115); Potassium 3.9 mmol/L (3.5-5.1); Sodium 137 mmol/L (136-145)
[2022-12-24] MEDS: Cefepime 2 GM in Sodium Chloride 0.9% 100 ML IVPB SCH ×2 (08:19→20:55)
[2022-12-24] MEDS: HYDROcodone/Acetaminophen 10/325 mg Tablet PO PRN ×3 (08:20→20:56)
[2022-12-24] MEDS: Carvedilol 3.125 MG TAB PO SCH ×2 (08:20→17:03)
[2022-12-24] MEDS: Gabapentin 400 MG CAP PO SCH ×3 (08:20→20:51)
[2022-12-24] MEDS ORDERED: Losartan 25 MG TAB PO SCH ×2 (10:12→10:30)
[2022-12-24 13:50] LABS: Vancomycin, Trough 21.4 ug/mL
[2022-12-24] MEDS: Losartan 25 MG TAB PO SCH (20:53)
[2022-12-24] MEDS: Venlafaxine HCl XR 150 MG CAP PO SCH (20:53)
[2022-12-24] MEDS: Atorvastatin Calcium 40 MG TAB PO SCH (20:53)
[2022-12-24] MEDS: Famotidine 20 MG TAB PO SCH (20:54)
[2022-12-25 03:15] LABS: #Basophils 0.1 thou/uL (0.0-0.2); #Eosinphils 0.3 thou/uL (0.0-0.7); #Lymphocytes 3.2 thou/uL (1.20-3.40); #Monocytes 0.9 thou/uL (0.11-0.59); #Neutrophils 5.1 thou/uL (1.40-6.50); %Basophils 0.6 % (0.0-1.0); %Eosinophils 3.3 % (0.0-10.0); %Lymphocytes 33.5 % (21.0-51.0); %Neutrophils 53.6 % (42.0-75.0); Hemoglobin 9.7 g/dL (14.0-18.0); Mean Corpuscular HGB CONC 33.2 g/dL (32.0-36.0); Mean Corpuscular Hemoglobin 32.4 pg (27.0-31.0); Mean Corpuscular Volume 97.6 fl (78.0-98.0); Mean Platelet Volume 6.8 fL (7.4-10.4); Platelet Count 284 10x3/uL (130-400); RBC Distribution Width 14.7 % (11.5-14.5); Red Blood Cell (RBC) Count 2.99 mill/uL (4.70-6.10); White Blood Cell (WBC) Count 9.6 10x3/uL (4.8-10.8)
[2022-12-25 03:32] LABS: Vancomycin, Trough 13.4 ug/mL
[2022-12-25 03:49] LABS: Anion Gap 13 mmol/L (10-20); BUN (Urea Nitrogen) 19 mg/dL (8.4-25.7); Calc. Creatinine Clearance 143 mL/min (70-130); Calcium 9.5 mg/dL (7.8-10.44); Carbon Dioxide 22 mmol/L (23-31); Chloride 105 mmol/L (98-107); Estimated GFR 98; Glucose 113 mg/dL (80-115); Sodium 136 mmol/L (136-145)
[2022-12-25] MEDS ORDERED: Vancomycin 1 GM in Premix Bag 1 BAG IVPB SCH (04:00)
[2022-12-25] MEDS: Cefepime 2 GM in Sodium Chloride 0.9% 100 ML IVPB SCH ×2 (08:07→19:54)
[2022-12-25] MEDS: HYDROcodone/Acetaminophen 10/325 mg Tablet PO PRN ×2 (08:07→15:51)
[2022-12-25] MEDS: Gabapentin 400 MG CAP PO SCH ×3 (08:08→19:55)
[2022-12-25] MEDS: Carvedilol 3.125 MG TAB PO SCH ×2 (08:08→16:46)
[2022-12-25] MEDS: Losartan 25 MG TAB PO SCH ×2 (08:08→19:57)
[2022-12-25] MEDS ORDERED: Sodium Chloride 0.9% 1,000 ML IV SCH (09:00)
[2022-12-25] MEDS: Nicotine 21 MG PATCH TD SCH (09:32)
[2022-12-25] MEDS ORDERED: Fleet Enema 133 ML BOT PR SCH (12:00)
[2022-12-25] MEDS ORDERED: Iopamidol-370 76% 500 ML 1 ML ONE (14:18)
[2022-12-25] MEDS ORDERED: Morphine 4 MG/ML VIAL SLOW IVP PRN (17:03)
[2022-12-25] MEDS ORDERED: Aspirin 81 mg Enteric Coated Tablet PO SCH (17:15)
[2022-12-25] MEDS: Venlafaxine HCl XR 150 MG CAP PO SCH (19:56)
[2022-12-25] MEDS: Atorvastatin Calcium 40 MG TAB PO SCH (19:57)
[2022-12-25] MEDS: Famotidine 20 MG TAB PO SCH (19:58)
[2022-12-25] MEDS: Acetaminophen 325 MG TAB PO PRN (20:03)
[2022-12-26 05:17] LABS: #Eosinphils 0.3 thou/uL (0.0-0.7); #Lymphocytes 2.6 thou/uL (1.20-3.40); #Monocytes 0.8 thou/uL (0.11-0.59); #Neutrophils 3.7 thou/uL (1.40-6.50); %Basophils 0.4 % (0.0-1.0); %Eosinophils 3.8 % (0.0-10.0); %Lymphocytes 34.7 % (21.0-51.0); %Monocytes 10.8 % (0.0-10.0); %Neutrophils 50.3 % (42.0-75.0); Mean Corpuscular HGB CONC 32.2 g/dL (32.0-36.0); Mean Corpuscular Hemoglobin 31.6 pg (27.0-31.0); Mean Corpuscular Volume 98.2 fl (78.0-98.0); Mean Platelet Volume 6.4 fL (7.4-10.4); Platelet Count 290 10x3/uL (130-400); RBC Distribution Width 14.6 % (11.5-14.5); Red Blood Cell (RBC) Count 3.15 mill/uL (4.70-6.10); White Blood Cell (WBC) Count 7.4 10x3/uL (4.8-10.8)
[2022-12-26 05:38] LABS: Anion Gap 12 mmol/L (10-20); BUN (Urea Nitrogen) 21 mg/dL (8.4-25.7); Calc. Creatinine Clearance 155 mL/min (70-130); Calcium 9.3 mg/dL (7.8-10.44); Carbon Dioxide 23 mmol/L (23-31); Chloride 106 mmol/L (98-107); Estimated GFR 101; Glucose 104 mg/dL (80-115); Potassium 4.3 mmol/L (3.5-5.1); Sodium 137 mmol/L (136-145)
[2022-12-26] MEDS: Aspirin 81 mg Enteric Coated Tablet PO SCH (08:28)
[2022-12-26] MEDS: Gabapentin 400 MG CAP PO SCH ×3 (08:28→20:59)
[2022-12-26] MEDS: Cefepime 2 GM in Sodium Chloride 0.9% 100 ML IVPB SCH ×2 (08:29→20:58)
[2022-12-26] MEDS: Carvedilol 3.125 MG TAB PO SCH ×2 (08:29→17:44)
[2022-12-26] MEDS: HYDROcodone/Acetaminophen 10/325 mg Tablet PO PRN ×3 (08:29→21:06)
[2022-12-26] MEDS: Losartan 25 MG TAB PO SCH ×2 (08:30→21:02)
[2022-12-26] MEDS: Nicotine 21 MG PATCH TD SCH (11:25)
[2022-12-26] MEDS: Famotidine 20 MG TAB PO SCH (21:01)
[2022-12-26] MEDS: Venlafaxine HCl XR 150 MG CAP PO SCH (21:01)
[2022-12-26] MEDS: Atorvastatin Calcium 40 MG TAB PO SCH (21:01)
[2022-12-27 06:01] LABS: #Basophils 0.1 thou/uL (0.0-0.2); #Eosinphils 0.4 thou/uL (0.0-0.7); #Monocytes 0.9 thou/uL (0.11-0.59); #Neutrophils 5.1 thou/uL (1.40-6.50); %Basophils 0.6 % (0.0-1.0); %Eosinophils 4.3 % (0.0-10.0); %Lymphocytes 32.1 % (21.0-51.0); %Neutrophils 53.9 % (42.0-75.0); Hemoglobin 9.7 g/dL (14.0-18.0); Mean Corpuscular HGB CONC 32.2 g/dL (32.0-36.0); Mean Corpuscular Hemoglobin 31.5 pg (27.0-31.0); Mean Corpuscular Volume 97.7 fl (78.0-98.0); Mean Platelet Volume 6.7 fL (7.4-10.4); Platelet Count 287 10x3/uL (130-400); RBC Distribution Width 14.8 % (11.5-14.5); White Blood Cell (WBC) Count 9.4 10x3/uL (4.8-10.8)
[2022-12-27 06:12] LABS: Anion Gap 11 mmol/L (10-20); BUN (Urea Nitrogen) 25 mg/dL (8.4-25.7); Calc. Creatinine Clearance 151 mL/min (70-130); Calcium 9.7 mg/dL (7.8-10.44); Carbon Dioxide 24 mmol/L (23-31); Chloride 105 mmol/L (98-107); Estimated GFR 100; Glucose 98 mg/dL (80-115); Potassium 4.2 mmol/L (3.5-5.1); Sodium 136 mmol/L (136-145)
[2022-12-27] MEDS: Losartan 25 MG TAB PO SCH ×2 (09:06→20:56)
[2022-12-27] MEDS: Nicotine 21 MG PATCH TD SCH (09:06)
[2022-12-27] MEDS: Aspirin 81 mg Enteric Coated Tablet PO SCH (09:07)
[2022-12-27] MEDS: Cefepime 2 GM in Sodium Chloride 0.9% 100 ML IVPB SCH (09:07)
[2022-12-27] MEDS: HYDROcodone/Acetaminophen 10/325 mg Tablet PO PRN ×3 (09:07→20:59)
[2022-12-27] MEDS: Gabapentin 400 MG CAP PO SCH ×3 (09:07→20:55)
[2022-12-27] MEDS: Carvedilol 3.125 MG TAB PO SCH ×2 (09:07→16:55)
[2022-12-27] MEDS: cefTRIAXone\\ROCEPHIN 1 GM in Sodium Chloride 0.9% 100 ML IVPB SCH (14:58)
[2022-12-27] MEDS: Acetaminophen 325 MG TAB PO PRN (15:02)
[2022-12-27] MEDS ORDERED: Milk Of Magnesia 30 ML UDCUP PO SCH (19:45)
[2022-12-27] MEDS: Atorvastatin Calcium 40 MG TAB PO SCH (20:55)
[2022-12-27] MEDS: Famotidine 20 MG TAB PO SCH (20:56)
[2022-12-27] MEDS: Venlafaxine HCl XR 150 MG CAP PO SCH (22:07)
[2022-12-28] MEDS: Acetaminophen 325 MG TAB PO PRN ×2 (05:46→17:18)
[2022-12-28] MEDS: HYDROcodone/Acetaminophen 10/325 mg Tablet PO PRN ×2 (05:47→21:38)
[2022-12-28] MEDS ORDERED: Lidocaine 1% (PF) 30 ML VIAL ONE (06:11)
[2022-12-28] MEDS ORDERED: Heparin 10,000 UNITS/ 10 ML VIAL ONE (06:11)
[2022-12-28] MEDS ORDERED: FENTANYL 50 MCG/ML 1 ML VIAL ONE ×2 (06:44→07:43)
[2022-12-28] MEDS ORDERED: Midazolam HCl 2 mg/2 ml Vial ONE (06:44)
[2022-12-28] MEDS ORDERED: Protamine Sulfate 50 MG/5 ML VIAL ONE (07:50)
[2022-12-28] MEDS: Nicotine 21 MG PATCH TD SCH (10:00)
[2022-12-28] MEDS: Carvedilol 3.125 MG TAB PO SCH ×2 (10:20→18:16)
[2022-12-28] MEDS: Aspirin 81 mg Enteric Coated Tablet PO SCH (10:20)
[2022-12-28] MEDS: Gabapentin 400 MG CAP PO SCH ×3 (10:21→22:09)
[2022-12-28] MEDS: Losartan 25 MG TAB PO SCH ×2 (10:21→22:09)
[2022-12-28] MEDS ORDERED: Fentanyl 100 MCG/2 ML VIAL ONE ×4 (10:57→15:23)
[2022-12-28] MEDS ORDERED: Bupivacaine/Epinephrine 0.25% 30 ML VIAL ONE (11:47)
[2022-12-28] MEDS ORDERED: fentaNYL PF 100 MCG/2 ML SYRINGE ONE (11:51)
[2022-12-28] MEDS ORDERED: Phenylephrine 10 MG/ML VIAL ONE (11:52)
[2022-12-28] MEDS ORDERED: Dexamethasone 20 MG/5 ML VIAL ONE (12:23)
[2022-12-28] MEDS ORDERED: ePHEDrine 50 MG/ML VIAL ONE (12:23)
[2022-12-28] MEDS ORDERED: Ondansetron PF 4 MG/2 ML Vial ONE (12:23)
[2022-12-28] MEDS ORDERED: NEOSTIGMINE 3 MG/3 ML SYR 3 MG/3 ML SYRINGE ONE (12:23)
[2022-12-28] MEDS ORDERED: Rocuronium Bromide 10 MG/ML (10ML VIAL) ONE (12:23)
[2022-12-28] MEDS ORDERED: Glycopyrrolate 0.2 MG/ML 5 ML SYRINGE ONE (12:23)
[2022-12-28] MEDS ORDERED: Lidocaine 1% PF 5 ML VIAL ONE (12:23)
[2022-12-28] MEDS ORDERED: PROPOFOL 200 MG/20 ML VIAL ONE (12:23)
[2022-12-28] MEDS ORDERED: Ketorolac Tromethamine 30 MG/ML VIAL IVP PRN (13:39)
[2022-12-28] MEDS ORDERED: HYDROmorphone 2 MG/ML VIAL SLOW IVP PRN (13:39)
[2022-12-28] MEDS ORDERED: Ondansetron HCl/PF 4 MG/2 ML Vial IVP PRN (13:39)
[2022-12-28] MEDS ORDERED: Promethazine HCl 25 MG/ML VIAL IM PRN (13:39)
[2022-12-28] MEDS ORDERED: SUGAMMADEX SODIUM 200 MG/2 ML VIAL ONE (13:44)
[2022-12-28] MEDS ORDERED: Promethazine HCl 25 MG/ML VIAL ONE (14:00)
[2022-12-28] MEDS ORDERED: HYDROmorphone 0.5 MG/0.5 ML SYRINGE ONE ×4 (14:13→14:54)
[2022-12-28] MEDS ORDERED: hydrALAZINE 25 MG TAB PO PRN (16:43)
[2022-12-28] MEDS: cefTRIAXone\\ROCEPHIN 1 GM in Sodium Chloride 0.9% 100 ML IVPB SCH (17:08)
[2022-12-28] MEDS ORDERED: Iopamidol 370 76% 100 ML VIAL ONE (17:09)
[2022-12-28] MEDS: Atorvastatin Calcium 40 MG TAB PO SCH (22:08)
[2022-12-28] MEDS: Famotidine 20 MG TAB PO SCH (22:08)
[2022-12-28] MEDS: Methylcellulose 500 MG TAB PO SCH (22:09)
[2022-12-28] MEDS: Venlafaxine HCl XR 150 MG CAP PO SCH (22:09)
[2022-12-29] MEDS: Ondansetron PF 4 MG/2 ML Vial IVP PRN ×2 (00:52→06:03)
[2022-12-29] MEDS ORDERED: Acetaminophen 500 MG TAB PO SCH (01:15)
[2022-12-29] MEDS ORDERED: traMADol HCl 50 MG TAB PO SCH (01:15)
[2022-12-29] MEDS ORDERED: Morphine 2 MG/ML VIAL SLOW IVP SCH (02:30)
[2022-12-29] MEDS: HYDROcodone/Acetaminophen 10/325 mg Tablet PO PRN (03:29)
[2022-12-29 06:22] LABS: #Eosinphils 0.1 thou/uL (0.0-0.7); #Monocytes 1.5 thou/uL (0.11-0.59); %Basophils 0.1 % (0.0-1.0); %Eosinophils 0.5 % (0.0-10.0); %Lymphocytes 17.1 % (21.0-51.0); %Monocytes 8.3 % (0.0-10.0); Hemoglobin 10.9 g/dL (14.0-18.0); Mean Corpuscular HGB CONC 32.3 g/dL (32.0-36.0); Mean Corpuscular Hemoglobin 31.7 pg (27.0-31.0); Mean Corpuscular Volume 98.3 fl (78.0-98.0); Mean Platelet Volume 6.6 fL (7.4-10.4); Platelet Count 334 10x3/uL (130-400); RBC Distribution Width 14.7 % (11.5-14.5); Red Blood Cell (RBC) Count 3.45 mill/uL (4.70-6.10); White Blood Cell (WBC) Count 17.6 10x3/uL (4.8-10.8)
[2022-12-29 06:46] LABS: Anion Gap 15 mmol/L (10-20); BUN (Urea Nitrogen) 20 mg/dL (8.4-25.7); Calc. Creatinine Clearance 128 mL/min (70-130); Calcium 9.8 mg/dL (7.8-10.44); Carbon Dioxide 26 mmol/L (23-31); Chloride 101 mmol/L (98-107); Estimated GFR 95; Glucose 99 mg/dL (80-115); Magnesium 2.3 mg/dL (1.6-2.6); Potassium 5.1 mmol/L (3.5-5.1); Sodium 137 mmol/L (136-145)
[2022-12-29] MEDS ORDERED: HYDROcodone/Acetaminophen 10/325 mg Tablet PO PRN ×2 (07:46→07:48)
[2022-12-29] MEDS: Gabapentin 400 MG CAP PO SCH ×3 (08:28→21:44)
[2022-12-29] MEDS ORDERED: Morphine 4 MG/ML VIAL SLOW IVP SCH ×2 (08:29→16:30)
[2022-12-29] MEDS: Aspirin 81 mg Enteric Coated Tablet PO SCH (11:02)
[2022-12-29] MEDS: Losartan 25 MG TAB PO SCH ×2 (11:02→21:45)
[2022-12-29] MEDS: Methylcellulose 500 MG TAB PO SCH ×2 (11:02→21:44)
[2022-12-29] MEDS: Nicotine 21 MG PATCH TD SCH (11:03)
[2022-12-29] MEDS: Polyethylene Glycol 3350 17 GM Packet PO SCH (11:03)
[2022-12-29] MEDS: Carvedilol 3.125 MG TAB PO SCH ×2 (11:15→18:02)
[2022-12-29] MEDS: Morphine 2 MG/ML VIAL SLOW IVP PRN (12:57)
[2022-12-29] MEDS: cefTRIAXone\\ROCEPHIN 1 GM in Sodium Chloride 0.9% 100 ML IVPB SCH (14:24)
[2022-12-29] MEDS: Vancomycin 1.5 GRAM/300 ML BAG 1.5 GM in Premix Bag 1 BAG IVPB SCH (16:04)
[2022-12-29] MEDS ORDERED: fentaNYL PF 100 MCG/2 ML SYRINGE ONE ×2 (18:24→20:48)
[2022-12-29] MEDS ORDERED: Bupivacaine HCl 0.5%/Epinephrine 1:200,000/PF 30 ml Vial ONE (18:31)
[2022-12-29] MEDS ORDERED: PHENYLEPHRINE-NS 100 MCG/ML 10 ML SYRINGE ONE ×2 (18:46→19:02)
[2022-12-29] MEDS ORDERED: Dexmedetomidine 200 MCG/2 ML VIAL ONE (18:46)
[2022-12-29] MEDS ORDERED: Dexamethasone 20 MG/5 ML VIAL ONE (19:02)
[2022-12-29] MEDS ORDERED: Lidocaine 1% PF 5 ML VIAL ONE (19:02)
[2022-12-29] MEDS ORDERED: Ondansetron PF 4 MG/2 ML Vial ONE (19:02)
[2022-12-29] MEDS ORDERED: Rocuronium Bromide 10 MG/ML (10ML VIAL) ONE (19:02)
[2022-12-29] MEDS ORDERED: PROPOFOL 200 MG/20 ML VIAL ONE (19:02)
[2022-12-29] MEDS ORDERED: Ketorolac Tromethamine 30 MG/ML VIAL IVP SCH (20:30)
[2022-12-29] MEDS: Sodium Chloride 0.45% 1,000 ML IV SCH (21:44)
[2022-12-29] MEDS: Famotidine 20 MG TAB PO SCH (21:44)
[2022-12-29] MEDS: Ascorbic Acid 500 mg Chewable Tablet PO SCH (21:45)
[2022-12-29] MEDS: Atorvastatin Calcium 40 MG TAB PO SCH (21:45)
[2022-12-29] MEDS: Zinc Sulfate 220 MG CAP PO SCH (21:46)
[2022-12-29] MEDS: Venlafaxine HCl XR 150 MG CAP PO SCH (21:46)
[2022-12-29] MEDS: Clindamycin/D5W 900 MG in Premix Bag 1 BAG IVPB SCH (21:46)
[2022-12-29] MEDS: Multivit, Therapeutic 1 TAB PO SCH (21:46)
[2022-12-30] MEDS: Vancomycin 1.5 GRAM/300 ML BAG 1.5 GM in Premix Bag 1 BAG IVPB SCH ×2 (03:44→16:55)
[2022-12-30] MEDS: HYDROcodone/Acetaminophen 10/325 mg Tablet PO PRN ×3 (03:47→21:31)
[2022-12-30] MEDS: Sodium Chloride 0.45% 1,000 ML IV SCH ×3 (03:48→17:06)
[2022-12-30] MEDS: Clindamycin/D5W 900 MG in Premix Bag 1 BAG IVPB SCH ×3 (05:54→21:35)
[2022-12-30] MEDS: Morphine 2 MG/ML VIAL SLOW IVP PRN ×3 (05:57→23:49)
[2022-12-30 09:30] LABS: #Lymphocytes 2.2 thou/uL (1.20-3.40); #Monocytes 2.1 thou/uL (0.11-0.59); #Neutrophils 15.5 thou/uL (1.40-6.50); %Eosinophils 0.1 % (0.0-10.0); %Lymphocytes 11.2 % (21.0-51.0); %Monocytes 10.4 % (0.0-10.0); %Neutrophils 78.3 % (42.0-75.0); Hemoglobin 9.3 g/dL (14.0-18.0); Mean Corpuscular HGB CONC 31.2 g/dL (32.0-36.0); Mean Corpuscular Hemoglobin 30.7 pg (27.0-31.0); Mean Corpuscular Volume 98.6 fl (78.0-98.0); Mean Platelet Volume 6.6 fL (7.4-10.4); Platelet Count 266 10x3/uL (130-400); RBC Distribution Width 14.9 % (11.5-14.5); Red Blood Cell (RBC) Count 3.02 mill/uL (4.70-6.10); White Blood Cell (WBC) Count 19.8 10x3/uL (4.8-10.8)
[2022-12-30 09:41] LABS: ALT (SGPT) 9 U/L (8-55); AST (SGOT) 10 U/L (5-34); Albumin 2.8 g/dL (3.4-4.8); Alkaline Phosphatase 49 U/L (40-110); Anion Gap 12 mmol/L (10-20); BUN (Urea Nitrogen) 20 mg/dL (8.4-25.7); Bilirubin, Total 0.4 mg/dL (0.2-1.2); Calc. Creatinine Clearance 131 mL/min (70-130); Calcium 9.2 mg/dL (7.8-10.44); Carbon Dioxide 24 mmol/L (23-31); Chloride 103 mmol/L (98-107); Estimated GFR 96; Globulin 3.6 g/dL (2.4-3.5); Glucose 108 mg/dL (80-115); Potassium 4.5 mmol/L (3.5-5.1); Protein, Total 6.4 g/dL (5.8-8.1); Sodium 134 mmol/L (136-145)
[2022-12-30] MEDS: Aspirin 81 mg Enteric Coated Tablet PO SCH (10:02)
[2022-12-30] MEDS: Gabapentin 400 MG CAP PO SCH ×3 (10:02→21:44)
[2022-12-30] MEDS: Carvedilol 3.125 MG TAB PO SCH ×2 (10:03→18:09)
[2022-12-30] MEDS: Methylcellulose 500 MG TAB PO SCH (10:04)
[2022-12-30] MEDS: Nicotine 21 MG PATCH TD SCH (10:04)
[2022-12-30] MEDS: Losartan 25 MG TAB PO SCH ×2 (10:05→21:44)
[2022-12-30] MEDS: Ketorolac Tromethamine 30 MG/ML VIAL IVP PRN ×2 (10:06→16:55)
[2022-12-30] MEDS: Polyethylene Glycol 3350 17 GM Packet PO SCH (10:07)
[2022-12-30] MEDS: cefTRIAXone\\ROCEPHIN 1 GM in Sodium Chloride 0.9% 100 ML IVPB SCH (14:27)
[2022-12-30] MEDS: Ondansetron PF 4 MG/2 ML Vial IVP PRN ×2 (14:28→21:31)
[2022-12-30] MEDS: Famotidine 20 MG TAB PO SCH (21:44)
[2022-12-30] MEDS: Multivit, Therapeutic 1 TAB PO SCH (21:44)
[2022-12-30] MEDS: Atorvastatin Calcium 40 MG TAB PO SCH (21:44)
[2022-12-30] MEDS: Ascorbic Acid 500 mg Chewable Tablet PO SCH (21:44)
[2022-12-30] MEDS: Zinc Sulfate 220 MG CAP PO SCH (21:45)
[2022-12-30] MEDS: Venlafaxine HCl XR 150 MG CAP PO SCH (21:45)
[2022-12-31] MEDS: Clindamycin/D5W 900 MG in Premix Bag 1 BAG IVPB SCH ×2 (05:45→16:00)
[2022-12-31 06:03] LABS: #Eosinphils 0.2 thou/uL (0.0-0.7); #Lymphocytes 2.1 thou/uL (1.20-3.40); #Monocytes 1.7 thou/uL (0.11-0.59); #Neutrophils 12.4 thou/uL (1.40-6.50); %Basophils 0.1 % (0.0-1.0); %Eosinophils 1.1 % (0.0-10.0); %Lymphocytes 12.6 % (21.0-51.0); %Monocytes 10.4 % (0.0-10.0); %Neutrophils 75.8 % (42.0-75.0); Hemoglobin 8.9 g/dL (14.0-18.0); Mean Corpuscular HGB CONC 32.2 g/dL (32.0-36.0); Mean Corpuscular Hemoglobin 31.4 pg (27.0-31.0); Mean Corpuscular Volume 97.3 fl (78.0-98.0); Mean Platelet Volume 6.8 fL (7.4-10.4); Platelet Count 249 10x3/uL (130-400); RBC Distribution Width 14.8 % (11.5-14.5); Red Blood Cell (RBC) Count 2.83 mill/uL (4.70-6.10); White Blood Cell (WBC) Count 16.3 10x3/uL (4.8-10.8)
[2022-12-31] MEDS: Morphine 2 MG/ML VIAL SLOW IVP PRN (06:21)
[2022-12-31 06:34] LABS: Vancomycin, Random 32.4 ug/mL (See Comment)
[2022-12-31 06:36] LABS: ALT (SGPT) 8 U/L (8-55); AST (SGOT) 14 U/L (5-34); Albumin 2.9 g/dL (3.4-4.8); Alkaline Phosphatase 54 U/L (40-110); Anion Gap 16 mmol/L (10-20); BUN (Urea Nitrogen) 40 mg/dL (8.4-25.7); Bilirubin, Total 0.4 mg/dL (0.2-1.2); Calc. Creatinine Clearance 57 mL/min (70-130); Calcium 9.6 mg/dL (7.8-10.44); Carbon Dioxide 30 mmol/L (23-31); Chloride 92 mmol/L (98-107); Estimated GFR 37; Globulin 3.7 g/dL (2.4-3.5); Glucose 102 mg/dL (80-115); Potassium 3.9 mmol/L (3.5-5.1); Protein, Total 6.6 g/dL (5.8-8.1); Sodium 134 mmol/L (136-145)
[2022-12-31] MEDS: Vancomycin 1.5 GRAM/300 ML BAG 1.5 GM in Premix Bag 1 BAG IVPB SCH (07:38)
[2022-12-31] MEDS: Gabapentin 400 MG CAP PO SCH ×3 (09:23→21:03)
[2022-12-31] MEDS: Aspirin 81 mg Enteric Coated Tablet PO SCH (09:23)
[2022-12-31] MEDS: Polyethylene Glycol 3350 17 GM Packet PO SCH (09:24)
[2022-12-31] MEDS: Sodium Chloride 0.45% 1,000 ML IV SCH ×4 (09:24→23:35)
[2022-12-31] MEDS ORDERED: FENTANYL 50 MCG/ML 1 ML VIAL ONE (09:29)
[2022-12-31] MEDS ORDERED: Midazolam HCl 2 mg/2 ml Vial ONE (09:29)
[2022-12-31] MEDS ORDERED: Bupivacaine PF 0.5% 30 ML VIAL ONE ×2 (09:29)
[2022-12-31] MEDS ORDERED: Fentanyl 250 MCG/5 ML VIAL ONE (09:46)
[2022-12-31] MEDS ORDERED: Albumin 5% 250 ML ONE (09:46)
[2022-12-31] MEDS ORDERED: SUGAMMADEX SODIUM 200 MG/2 ML VIAL ONE (09:46)
[2022-12-31] MEDS ORDERED: Lidocaine 1% PF 5 ML VIAL ONE (09:59)
[2022-12-31] MEDS ORDERED: Calcium Chloride 1 GM/10 ML Abboject SYRINGE ONE (09:59)
[2022-12-31] MEDS ORDERED: Ondansetron PF 4 MG/2 ML Vial ONE (09:59)
[2022-12-31] MEDS ORDERED: Glycopyrrolate 0.2 MG/ML 5 ML SYRINGE ONE (09:59)
[2022-12-31] MEDS ORDERED: Bupivacaine HCl 0.5%/Epinephrine 1:200,000/PF 30 ml Vial ONE (09:59)
[2022-12-31] MEDS ORDERED: PHENYLEPHRINE-NS 100 MCG/ML 10 ML SYRINGE ONE (09:59)
[2022-12-31] MEDS ORDERED: Rocuronium Bromide 10 MG/ML (10ML VIAL) ONE (09:59)
[2022-12-31] MEDS ORDERED: PROPOFOL 200 MG/20 ML VIAL ONE (09:59)
[2022-12-31] MEDS ORDERED: Dexamethasone 20 MG/5 ML VIAL ONE (09:59)
[2022-12-31] MEDS ORDERED: HYDROmorphone 2 MG/ML VIAL ONE (10:49)
[2022-12-31] MEDS ORDERED: Albumin 5% 500 ML ONE (11:11)
[2022-12-31] MEDS ORDERED: HYDROmorphone 0.5 MG/0.5 ML SYRINGE ONE (13:11)
[2022-12-31] MEDS ORDERED: Promethazine HCl 25 MG/ML VIAL IM PRN (13:12)
[2022-12-31] MEDS ORDERED: HYDROmorphone 2 MG/ML VIAL SLOW IVP PRN (13:12)
[2022-12-31] MEDS ORDERED: Ondansetron HCl/PF 4 MG/2 ML Vial IVP PRN (13:12)
[2022-12-31] MEDS ORDERED: Fentanyl 100 MCG/2 ML VIAL ONE (14:13)
[2022-12-31] MEDS ORDERED: Naloxone HCl 0.4 mg/ml Vial IV PRN (14:15)
[2022-12-31] MEDS ORDERED: Fentanyl CADD 100 ML IVPB SCH (14:15)
[2022-12-31] MEDS ORDERED: diphenhydrAMINE 25 MG CAP PO PRN (14:15)
[2022-12-31] MEDS ORDERED: diphenhydrAMINE 50 MG/ML VIAL IM/IV PRN (14:15)
[2022-12-31] MEDS ORDERED: Zolpidem Tartrate 5 MG TAB PO PRN (14:15)
[2022-12-31] MEDS: Carvedilol 3.125 MG TAB PO SCH ×2 (14:16→18:07)
[2022-12-31] MEDS: Losartan 25 MG TAB PO SCH ×2 (14:16→21:06)
[2022-12-31] MEDS: Nicotine 21 MG PATCH TD SCH (15:47)
[2022-12-31] MEDS: cefTRIAXone\\ROCEPHIN 1 GM in Sodium Chloride 0.9% 100 ML IVPB SCH (15:47)
[2022-12-31 17:11] LABS: #Lymphocytes 0.9 thou/uL (1.20-3.40); #Monocytes 1.1 thou/uL (0.11-0.59); #Neutrophils 10.5 thou/uL (1.40-6.50); %Eosinophils 0.1 % (0.0-10.0); %Monocytes 9.1 % (0.0-10.0); %Neutrophils 83.8 % (42.0-75.0); Hemoglobin 7.7 g/dL (14.0-18.0); Mean Corpuscular Hemoglobin 31.8 pg (27.0-31.0); Mean Corpuscular Volume 96.3 fl (78.0-98.0); Mean Platelet Volume 7.2 fL (7.4-10.4); Platelet Count 198 10x3/uL (130-400); RBC Distribution Width 14.7 % (11.5-14.5); Red Blood Cell (RBC) Count 2.43 mill/uL (4.70-6.10); White Blood Cell (WBC) Count 12.5 10x3/uL (4.8-10.8)
[2022-12-31 17:45] LABS: Vancomycin, Random 22.7 ug/mL (See Comment)
[2022-12-31] MEDS: Albumin 25% 25 GM/100 ML BOT IVPB SCH ×2 (18:35→23:28)
[2022-12-31] MEDS ORDERED: Vancomycin 0.01 GM in Premix Bag 1 BAG IVPB SCH (19:00)
[2022-12-31] MEDS ORDERED: Vancomycin 1.5 GRAM/300 ML BAG 1.5 GM in Premix Bag 1 BAG IVPB SCH (20:00)
[2022-12-31] MEDS: Ascorbic Acid 500 mg Chewable Tablet PO SCH (21:04)
[2022-12-31] MEDS: Famotidine 20 MG TAB PO SCH (21:06)
[2022-12-31] MEDS: Venlafaxine HCl XR 150 MG CAP PO SCH (21:07)
[2022-12-31] MEDS: Atorvastatin Calcium 40 MG TAB PO SCH (21:07)
[2022-12-31] MEDS: Multivit, Therapeutic 1 TAB PO SCH (21:07)
[2022-12-31] MEDS: Zinc Sulfate 220 MG CAP PO SCH (21:08)
[2022-12-31] MEDS: metroNIDAZOLE 500 MG in Premix Bag 1 BAG IVPB SCH (22:54)
[2022-12-31 23:12] LABS: #Lymphocytes 1.2 thou/uL (1.20-3.40); #Monocytes 1.2 thou/uL (0.11-0.59); #Neutrophils 9.8 thou/uL (1.40-6.50); %Basophils 0.1 % (0.0-1.0); %Lymphocytes 9.8 % (21.0-51.0); %Neutrophils 80.1 % (42.0-75.0); Hemoglobin 7.9 g/dL (14.0-18.0); Mean Corpuscular HGB CONC 32.6 g/dL (32.0-36.0); Mean Corpuscular Hemoglobin 30.9 pg (27.0-31.0); Mean Corpuscular Volume 94.8 fl (78.0-98.0); Mean Platelet Volume 6.8 fL (7.4-10.4); Platelet Count 184 10x3/uL (130-400); RBC Distribution Width 14.9 % (11.5-14.5); Red Blood Cell (RBC) Count 2.55 mill/uL (4.70-6.10); White Blood Cell (WBC) Count 12.2 10x3/uL (4.8-10.8)
[2023-01-01] MEDS: Sodium Chloride 0.45% 1,000 ML IV SCH ×4 (04:50→23:45)
[2023-01-01 06:02] LABS: #Lymphocytes 1.4 thou/uL (1.20-3.40); #Monocytes 1.2 thou/uL (0.11-0.59); #Neutrophils 8.5 thou/uL (1.40-6.50); %Basophils 0.1 % (0.0-1.0); %Eosinophils 0.3 % (0.0-10.0); %Lymphocytes 12.7 % (21.0-51.0); %Monocytes 10.6 % (0.0-10.0); %Neutrophils 76.3 % (42.0-75.0); Hemoglobin 7.8 g/dL (14.0-18.0); Mean Corpuscular HGB CONC 32.8 g/dL (32.0-36.0); Mean Corpuscular Hemoglobin 31.1 pg (27.0-31.0); Mean Corpuscular Volume 94.7 fl (78.0-98.0); Mean Platelet Volume 6.6 fL (7.4-10.4); Platelet Count 184 10x3/uL (130-400); RBC Distribution Width 15.2 % (11.5-14.5); White Blood Cell (WBC) Count 11.1 10x3/uL (4.8-10.8)
[2023-01-01] MEDS: metroNIDAZOLE 500 MG in Premix Bag 1 BAG IVPB SCH ×3 (06:11→21:23)
[2023-01-01] MEDS: Albumin 25% 25 GM/100 ML BOT IVPB SCH ×2 (06:11→12:20)
[2023-01-01 06:51] LABS: Anion Gap 14 mmol/L (10-20); BUN (Urea Nitrogen) 42 mg/dL (8.4-25.7); Calc. Creatinine Clearance 57 mL/min (70-130); Calcium 8.6 mg/dL (7.8-10.44); Carbon Dioxide 27 mmol/L (23-31); Chloride 99 mmol/L (98-107); Estimated GFR 37; Glucose 93 mg/dL (80-115); Potassium 4.1 mmol/L (3.5-5.1); Sodium 136 mmol/L (136-145)
[2023-01-01] MEDS: Gabapentin 400 MG CAP PO SCH ×4 (08:59→21:26)
[2023-01-01] MEDS: Nicotine 21 MG PATCH TD SCH (08:59)
[2023-01-01] MEDS: Polyethylene Glycol 3350 17 GM Packet PO SCH ×2 (08:59→09:19)
[2023-01-01] MEDS: Carvedilol 3.125 MG TAB PO SCH ×2 (09:01→17:26)
[2023-01-01] MEDS: Aspirin 81 mg Enteric Coated Tablet PO SCH (09:01)
[2023-01-01] MEDS: Losartan 25 MG TAB PO SCH ×2 (09:07→21:23)
[2023-01-01] MEDS: Ondansetron PF 4 MG/2 ML Vial IVP PRN ×2 (10:40→17:32)
[2023-01-01] MEDS ORDERED: Fentanyl CADD 100 ML IVPB SCH ×3 (12:07→18:00)
[2023-01-01] MEDS: Promethazine HCl 25 MG/ML VIAL IM PRN ×2 (12:47→18:43)
[2023-01-01] MEDS: cefTRIAXone\\ROCEPHIN 1 GM in Sodium Chloride 0.9% 100 ML IVPB SCH (14:10)
[2023-01-01 14:58] LABS: Vancomycin, Random 32.9 ug/mL (See Comment)
[2023-01-01] MEDS ORDERED: Vancomycin 1.5 GRAM/300 ML BAG 1.5 GM in Premix Bag 1 BAG IVPB SCH (15:30)
[2023-01-01] MEDS ORDERED: HOLD VANCOMYCIN FOR LEVEL >20 IVP SCH (15:45)
[2023-01-01 21:22] VITALS: BP 122/83; TEMP 97.4
[2023-01-01] MEDS: Zinc Sulfate 220 MG CAP PO SCH (21:23)
[2023-01-01] MEDS: Multivit, Therapeutic 1 TAB PO SCH ×2 (21:23→21:26)
[2023-01-01] MEDS: Venlafaxine HCl XR 150 MG CAP PO SCH (21:23)
[2023-01-01] MEDS ORDERED: EPINEPHrine 1 MG/10 ML Abboject SYRINGE ONE ×2 (21:59→22:56)
[2023-01-01] MEDS ORDERED: Sodium Bicarb 50 MEQ/50 ML Abboject 8.4% SYRINGE ONE ×2 (21:59→22:56)
[2023-01-01 22:36] LABS: Hemoglobin 4.2 g/dL (14.0-18.0); Mean Corpuscular HGB CONC 31.9 g/dL (32.0-36.0); Mean Corpuscular Hemoglobin 31.8 pg (27.0-31.0); Mean Corpuscular Volume 99.7 fl (78.0-98.0); Mean Platelet Volume 7.7 fL (7.4-10.4); Platelet Count 243 10x3/uL (130-400); Red Blood Cell (RBC) Count 1.33 mill/uL (4.70-6.10)
[2023-01-01] MEDS ORDERED: Albumin 5% 250 ML ONE (22:39)
[2023-01-01] MEDS ORDERED: Heparin 10,000 UNITS/ 10 ML VIAL ONE (22:41)
[2023-01-01] MEDS ORDERED: Fentanyl 250 MCG/5 ML VIAL ONE (22:42)
[2023-01-01 22:47] LABS: Magnesium 3.2 mg/dL (1.6-2.6)
[2023-01-01 22:54] LABS: ALT (SGPT) 391 U/L (8-55); AST (SGOT) 508 U/L (5-34); Albumin 3.5 g/dL (3.4-4.8); Alkaline Phosphatase 43 U/L (40-110); Anion Gap 35 mmol/L (10-20); BUN (Urea Nitrogen) 47 mg/dL (8.4-25.7); Bilirubin, Total 1.9 mg/dL (0.2-1.2); Calc. Creatinine Clearance 35 mL/min (70-130); Calcium 8.3 mg/dL (7.8-10.44); Carbon Dioxide 8 mmol/L (23-31); Chloride 101 mmol/L (98-107); Estimated GFR 21; Globulin 2.4 g/dL (2.4-3.5); Glucose 16 mg/dL (80-115); Potassium 6.8 mmol/L (3.5-5.1); Protein, Total 5.9 g/dL (5.8-8.1); Sodium 137 mmol/L (136-145)
[2023-01-01 22:56] LABS: Lactic Acid 18.9 mmol/L (0.5-2.2)
[2023-01-01] MEDS ORDERED: Atropine Sulfate 1 mg/10 ml Syringe ONE (22:56)
[2023-01-01] MEDS ORDERED: Dextrose 50% Abboject 50 ML SYRINGE ONE (22:56)
[2023-01-01] MEDS ORDERED: Calcium Chloride 1 GM/10 ML Abboject SYRINGE ONE (22:56)
[2023-01-01] MEDS ORDERED: Dextrose 10% in Water 1,000 ML IV SCH (23:00)
[2023-01-01] MEDS ORDERED: Sodium Chloride 0.9% 1,000 ML IV SCH (23:00)
[2023-01-01 23:04] LABS: Base Excess (BEa) -22.9 mEq/L (-2.0 to +3.0); Carboxyhemoglobin (COHb) 1.6 gm% (0.0-3.0); O2 Tension (PaO2), arterial 264.8 mmHg (> 80.0)
[2023-01-01 23:09] LABS: Actual Bicarbonate (HCO3a) 5.6 mEq/L (22-28); CO2 Tension 22.2 mmHg (35.0-45.0); pH, Arterial 7.02 (7.35-7.45)
[2023-01-01 23:10] LABS: Calcium, Ionized (arterial) 1.66 mmol/L (1.12-1.30); Puncture Site LFA
[2023-01-01 23:13] LABS: Anisocytosis SLIGHT = 6-15 cells (100X) (0-5/hpf); Band 2 % (5-11); Crenated RBC SLIGHT = 1-5 cells (100X) (None Seen); Lymphocytes 14 % (21-51); MDiff Complete? YES; Metamyelocyte 3 % (0-0); Monocytes 7 % (0-10); Myelocyte 1 % (0-0); Neutrophil 72 % (42-75); Nucleated RBC 2 % (0); Ovalocytes SLIGHT = 2-5 cells (100X) (0-1/hpf); Platelet Morphology Comment Appears Adequate; Polychromasia SLIGHT = 2-3 cells (100X) (0-2/hpf)
[2023-01-01] MEDS ORDERED: Sodium Bicarbonate 150 MEQ in Dextrose 5% in Water 1,000 ML IV SCH (23:15)
[2023-01-01] MEDS ORDERED: Insulin Regular 300 UNITS/3 ML VIAL ONE (23:39)
[2023-01-01] MEDS ORDERED: Midazolam HCl 2 mg/2 ml Vial ONE (23:44)
[2023-01-01] MEDS ORDERED: Rocuronium Bromide 10 MG/ML (10ML VIAL) ONE (23:50)
[2023-01-01] MEDS ORDERED: Albumin 25% 25 GM/100 ML BOT IVPB SCH (23:59)
[2023-01-02 00:22] LABS: Hemoglobin 6.3 g/dL (14.0-18.0); Mean Corpuscular HGB CONC 30.2 g/dL (32.0-36.0); Mean Corpuscular Hemoglobin 28.5 pg (27.0-31.0); Mean Corpuscular Volume 94.1 fl (78.0-98.0); Mean Platelet Volume 7.7 fL (7.4-10.4); Platelet Count 102 10x3/uL (130-400); RBC Distribution Width 15.2 % (11.5-14.5); Red Blood Cell (RBC) Count 2.19 mill/uL (4.70-6.10)
[2023-01-02 00:43] LABS: AST (SGOT) Greater than 3500 U/L (5-34); Albumin 2.6 g/dL (3.4-4.8); Alkaline Phosphatase 75 U/L (40-110); BUN (Urea Nitrogen) 45 mg/dL (8.4-25.7); Bilirubin, Total 1.4 mg/dL (0.2-1.2); Calc. Creatinine Clearance 37 mL/min (70-130); Calcium 9.7 mg/dL (7.8-10.44); Carbon Dioxide Less than 8 mmol/L (23-31); Chloride 97 mmol/L (98-107); Estimated GFR 22; Globulin 1.9 g/dL (2.4-3.5); Glucose 308 mg/dL (80-115); Magnesium 3.5 mg/dL (1.6-2.6); Potassium 6.6 mmol/L (3.5-5.1); Protein, Total 4.5 g/dL (5.8-8.1); Sodium 139 mmol/L (136-145)
[2023-01-02] MEDS ORDERED: Insulin Regular 300 UNITS/3 ML VIAL ONE (00:43)
[2023-01-02 00:50] LABS: ALT (SGPT) 3821 U/L (8-55)
[2023-01-02 01:18] LABS: MDiff Complete? YES; White Blood Cell (WBC) Count 17.1 10x3/uL (4.8-10.8)
[2023-01-02 01:19] LABS: Anisocytosis SLIGHT = 6-15 cells (100X) (0-5/hpf); Band 4 % (5-11); Crenated RBC SLIGHT = 1-5 cells (100X) (None Seen); Eosinophils 1 % (0-10); Large Platelets SLIGHT; Lymphocytes 13 % (21-51); Metamyelocyte 5 % (0-0); Monocytes 4 % (0-10); Myelocyte 3 % (0-0); Neutrophil 69 % (42-75); Nucleated RBC 1 % (0); Platelet Morphology Comment Appears Decreased; Polychromasia SLIGHT = 2-3 cells (100X) (0-2/hpf)
[2023-01-02 03:13] LABS: Base Excess (BEa) -19.9 mEq/L (-2.0 to +3.0); CO2 Tension 30.7 mmHg (35.0-45.0); Calcium, Ionized (arterial) 0.97 mmol/L (1.12-1.30); Carboxyhemoglobin (COHb) 0.9 gm% (0.0-3.0); Hemoglobin (Hb) 6.3 g/dL (14.0-18.0); O2 Tension (PaO2), arterial 276.7 mmHg (> 80.0)
[2023-01-02 03:15] LABS: Actual Bicarbonate (HCO3a) 8.6 mEq/L (22-28); pH, Arterial 7.07 (7.35-7.45)
[2023-01-02 03:16] LABS: ALV-art Gradient 397.925 mmHg (0-20); Puncture Site RFA
[2023-01-02 03:18] LABS: Base Excess (BEa) -22.9 mEq/L (-2.0 to +3.0); CO2 Tension 33.9 mmHg (35.0-45.0); Calcium, Ionized (arterial) 1.09 mmol/L (1.12-1.30); Hemoglobin (Hb) 7.4 g/dL (14.0-18.0); O2 Tension (PaO2), arterial 182.9 mmHg (> 80.0)
[2023-01-02 03:20] LABS: ALV-art Gradient 487.725 mmHg (0-20); Actual Bicarbonate (HCO3a) 7.4 mEq/L (22-28); Puncture Site ALINE; pH, Arterial 6.96 (7.35-7.45)
[2023-01-02] MEDS ORDERED: Pantoprazole 40 MG VIAL IVP SCH (09:00)
== END 2023-01-02 00:52 | disposition expired | DRG 579 ==
LOC: SJJU 22:52 → CCU 01-01 22:27
PROVIDERS: ADMIT Student in an Organized Health Care Education/Training Program; ATTEND Internal Medicine
PROC: 047L3ZZ Dilation of Left Femoral Artery, Percutaneous Approach (ICD-10-PCS; 2022-12-28)
PROC: 0DSN4ZZ Reposition Sigmoid Colon, Percutaneous Endoscopic Approach (ICD-10-PCS; 2022-12-28)
PROC: 0DBN4ZZ Excision of Sigmoid Colon, Percutaneous Endoscopic Approach (ICD-10-PCS; 2022-12-29)
PROC: 0DBL0ZZ Excision of Transverse Colon, Open Approach (ICD-10-PCS; principal; 2022-12-31)
PROC: B548ZZA Ultrasonography of Superior Vena Cava, Guidance (ICD-10-PCS; 2022-12-31)
PROC: 02HV33Z Insertion of Infusion Device into Superior Vena Cava, Percutaneous Approach (ICD-10-PCS; 2022-12-31)
PROC: 3E043XZ Introduction of Vasopressor into Central Vein, Percutaneous Approach (ICD-10-PCS; 2022-12-31)
PROC: 0D9770Z Drainage of Stomach, Pylorus with Drainage Device, Via Natural or Artificial Opening (ICD-10-PCS; 2022-12-31)
PROC: 30233L1 Transfusion of Nonautologous Fresh Plasma into Peripheral Vein, Percutaneous Approach (ICD-10-PCS; 2022-12-31)
PROC: 30233N1 Transfusion of Nonautologous Red Blood Cells into Peripheral Vein, Percutaneous Approach (ICD-10-PCS; 2022-12-31)
PROC: 30233R1 Transfusion of Nonautologous Platelets into Peripheral Vein, Percutaneous Approach (ICD-10-PCS; 2022-12-31)
PROC: 30233M1 Transfusion of Nonautologous Plasma Cryoprecipitate into Peripheral Vein, Percutaneous Approach (ICD-10-PCS; 2022-12-31)
PROC: 0BH17EZ Insertion of Endotracheal Airway into Trachea, Via Natural or Artificial Opening (ICD-10-PCS; 2022-12-31)
PROC: 5A1935Z Respiratory Ventilation, Less than 24 Consecutive Hours (ICD-10-PCS; 2022-12-31)
PROC: 0W9G0ZZ Drainage of Peritoneal Cavity, Open Approach (ICD-10-PCS; 2023-01-01)
PROC: 07BP0ZZ Excision of Spleen, Open Approach (ICD-10-PCS; 2023-01-01)
DX: L89.154 Pressure ulcer of sacral region, stage 4 (principal); K72.00 Acute and subacute hepatic failure without coma; T81.19XA Other postprocedural shock, initial encounter; K55.9 Vascular disorder of intestine, unspecified; L03.116 Cellulitis of left lower limb; G83.4 Cauda equina syndrome; K56.50 Intestinal adhesions [bands], unspecified as to partial versus complete obstruction; E87.20 Acidosis, unspecified; D62 Acute posthemorrhagic anemia; N17.9 Acute kidney failure, unspecified; K91.840 Postprocedural hemorrhage of a digestive system organ or structure following a digestive system procedure; L03.317 Cellulitis of buttock; L89.324 Pressure ulcer of left buttock, stage 4; L89.614 Pressure ulcer of right heel, stage 4; Z20.822 Contact with and (suspected) exposure to COVID-19; D64.9 Anemia, unspecified; K21.9 Gastro-esophageal reflux disease without esophagitis; I25.10 Atherosclerotic heart disease of native coronary artery without angina pectoris; J44.9 Chronic obstructive pulmonary disease, unspecified; I11.0 Hypertensive heart disease with heart failure; E78.5 Hyperlipidemia, unspecified; F17.210 Nicotine dependence, cigarettes, uncomplicated; I73.9 Peripheral vascular disease, unspecified; I50.9 Heart failure, unspecified; E66.01 Morbid (severe) obesity due to excess calories; L89.159 Pressure ulcer of sacral region, unspecified stage; E87.5 Hyperkalemia; E16.2 Hypoglycemia, unspecified; R57.1 Hypovolemic shock; Y83.8 Other surgical procedures as the cause of abnormal reaction of the patient, or of later complication, without mention of misadventure at the time of the procedure; Z88.0 Allergy status to penicillin; I25.2 Old myocardial infarction; Z79.82 Long term (current) use of aspirin; Z79.899 Other long term (current) drug therapy; Z90.49 Acquired absence of other specified parts of digestive tract; Z68.32 Body mass index [BMI] 32.0-32.9, adult; Z93.3 Colostomy status; I46.9 Cardiac arrest, cause unspecified
CPT/HCPCS: 36415; 36416; 36430; 36600; 37246; 71045; 74018; 75635; 75710; 80048; 80053; 80202; 82805; 83605; 83735; 84484; 85025; 85347; 86850; 86900; 86901; 87070; 87077; 87086; 87186; 87205; 87811; 88305; 88307; 93005; 93010; 93923; 94002; 97139; 99152; A4649; C1713; C1725; C1751; C1769; C1776; C1887; C1889; C1894; J0692; J0696; J1100; J1170; J1200; J1642; J1644; J1650; J1815; J1885; J2001; J2250; J2270; J2272; J2370; J2405; J2550; J2704; J2720; J3010; J3370; J3370-JW; J3490; J7050; J7070; P9012; P9016; P9035; P9045; P9047; P9059; Q9967; S0020; U0002